=== PATIENT | male | born 1970 | race Caucasian/White ===

== ENCOUNTER 2024-10-31 18:14 | Inpatient (IN) | payer MEDICAID, SELFPAY ==
[2024-10-31 18:25] VITALS: PULSE 75; RESP 20; O2SAT 99; BMI 21.9
[2024-10-31 18:47] VITALS: BP 179/92; PULSE 85; RESP 18; TEMP 36.9; O2SAT 99
--- NOTE | 2024-10-31 18:47 | XR_ITS ---
Examination: Abdomen sonogram, Limited Date and time of exam: October 31, 20242056 hours INDICATIONS: Epigastric pain nausea vomiting beginning 4:00 AM this morning Technique: Real-time de la cruz scale transabdominal sonographic images of the upper abdomen obtained. Findings: Gallstones Gallbladder wall 0.3 cm Common bile duct 0.2 cm Pancreatic head 3.7 cm Liver 14.2 cm no liver lesions Normal hepatopedal portal venous flow Patent IVC IMPRESSION: Cholelithiasis, negative for cholecystitis
--- NOTE | 2024-10-31 18:48 | PD.EDRME ---
Rapid Medical Screening Exam RME Arrival date/time: 10/31/24 18:14 54-year-old male with a history of hypertension presents to the emergency room with a chief complaint of nausea, vomiting, 8 out of 10 abdominal pain, diarrhea that began today at 5 AM. I have greeted and performed a focused initial assessment of this patient. A comprehensive ED assessment and evaluation of the patient, analysis of all test results, and completion of the medical decision making process will be conducted by additional ED providers. Chief Complaint: Nausea/Vomiting/Diarrhea Vital signs: Vital Signs Temperature 98.5 F 10/31/24 18:47 Pulse Rate 85 10/31/24 18:47 Respiratory Rate 18 10/31/24 18:47 Blood Pressure 179/92 H 10/31/24 18:47 Pulse Oximetry (%) 99 10/31/24 18:47 Oxygen Delivery Method Room Air 10/31/24 18:47 Vital signs reviewed by provider: Yes
[2024-10-31 19:41] LABS: Basophils # (Auto) 0.1 Thou/mm3 (0.0-0.2); Basophils % (Auto) 0 % (0-2.5); Eosinophils % (Auto) 0 % (0-10); Hematocrit 36.8 % (41.0-53.0); Hemoglobin 12.9 g/dL (13.5-16.0); Immature Granulocytes % (Auto) 1 % (0-0); Immature Granulocytes Auto 0.09 Thou/mm3 (0.00-0.00); Lymphocytes % (Auto) 6 % (10-50); Mean Corpuscular HGB Conc 35.1 g/dl (31.0-37.0); Mean Corpuscular Hemoglobin 34.7 pg (25.0-35.0); Mean Corpuscular Volume 99 fL (80-100); Monocytes # (Auto) 0.8 Thou/mm3 (0.0-0.8); Monocytes % (Auto) 5 % (0-12); Neutrophils # (Auto) 14.7 Thou/mm3 (1.8-7.7); Neutrophils % (Auto) 88 % (37-80); Nucleated Red Blood Cell % 0 /100 WBC (0); Platelet Count 267 Thou/mm3 (140-440); RDW Standard Deviation 53.1 fL (35.1-43.9); Red Blood Count 3.72 Miln/mm3 (4.50-5.90); White Blood Count 16.6 Thou/mm3 (3.8-10.6)
[2024-10-31 19:58] LABS: Alanine Aminotransferase 20 U/L (10-49); Albumin, Serum 5.5 gm/dL (3.5-5.0); Albumin/Globulin Ratio 1.5 (1.2-2.2); Alkaline Phosphatase 99 U/L (46-116); Anion Gap 24 (7-16); Aspartate Amino Transferase 24 U/L (0-34); BUN/Creatinine Ratio 6 Ratio (12-20); Bilirubin,Total 0.4 mg/dL (0.3-1.2); Blood Urea Nitrogen 48 mg/dL (9-23); Calcium 11.5 mg/dL (8.3-10.6); Calcium (Corrected) 11.5 mg/dL (8.5-10.1); Carbon Dioxide 24.3 mMol/L (20.0-31.0); Chloride 87 mMol/L (98-107); Creatinine (Component) 8.4 mg/dL (0.6-1.3); Estimated Creatinine Clearance 9.1 mL/min (>60); Globulin 3.6 gm/dL (2.3-3.5); Glucose 253 mg/dL (74-106); Lipase 66 U/L (12-53); Osmolality,Calculated 291 (275-295); Potassium 4.8 mMol/L (3.4-5.1); Sodium 135 mMol/L (136-145); Total Protein 9.1 gm/dL (5.7-8.2); eGFR 7 See Note
[2024-10-31 22:28] VITALS: BP 209/100; PULSE 100; RESP 18; TEMP 36.8; O2SAT 99
[2024-11-01] VITALS (39 sets, daily range): BP systolic 121–221; BP diastolic 65–112; PULSE 78–130; RESP 16–98; TEMP 36.6–37.7; O2SAT 95–100; BMI 21.9
--- NOTE | 2024-11-01 | PC.NURSE ---
PT RECEIVED FROM [facility], PT CAME TO ER FOR N/V. PT HAS ZOFRAN AT HOME THAT IS NOT WORKING. PT ALSO HAS HIGH BP. HX OF ESRD AND DM. DR. TOBIAS AWARE OF PT CONDITION, NEW ORDER GIVEN AND CARRIED OUT.
[2024-11-01] MEDS: METOCLOPRAMIDE INJ 5 MG/ML VIAL 2 ML 10 MG IVP (00:17)
[2024-11-01] MEDS: hydrALAZINE INJ 20 MG/ML VIAL IV (00:20)
--- NOTE | 2024-11-01 00:50 | EDNOTE_ITS ---
Nausea/Vomit./Diarrhea-RME/HPI General Chief complaint: Nausea/Vomiting/Diarrhea Stated complaint: VOMITING Time Seen by Provider: 10/31/24 18:55 Arrival date/time: 10/31/24 18:14 Limitations: no limitations RME / HPI RME / HPI Narrative: 10/31/24 18:14 54-year-old male with a history of hypertension presents to the emergency room with a chief complaint of nausea, vomiting, 8 out of 10 abdominal pain, diarrhea that began today at 5 AM. I have greeted and performed a focused initial assessment of this patient. A comprehensive ED assessment and evaluation of the patient, analysis of all test results, and completion of the medical decision making process will be conducted by additional ED providers. ---- Dr. Alfonso's Main ED Evaluation: 54yo male with a history of DM, HTN, renal disease on HD (//Sun) presents to the ED for complaints of nausea and vomiting x 1 day. Patient states he's had persistent vomiting today, reporting he usually gets like this when he needs dialysis. Patient endorses associated abdominal pain when he vomits. He denies any diarrhea, fever, chills or any other associated symptoms. Pyrotechnic Assembler is Dr. Camacho. Related Data Home Medications ?Medication ?Instructions ?Recorded ?Confirmed nifedipine 60 mg tablet,extended 60 mg PO BID 01/17/23 04/18/23 release 24 hr Previous Rx's ?Medication ?Instructions ?Recorded clonidine HCl 0.1 mg tablet 0.2 mg (2 x 0.1 mg) PO TID 30 days 11/25/22 #180 tabs hydralazine 100 mg tablet 100 mg PO TIDWM 1 month #90 tabs 11/25/22 metoclopramide HCl 5 mg tablet 5 mg PO TIDWMEAL #90 ta bs 11/25/22 (Reglan) valsartan 80 mg tablet 160 mg (2 x 80 mg) PO BID 30 days 11/25/22 #120 tabs aluminum-mag hydroxide-simethicone 15 ml PO QID PRN in digestion 03/26/24 200 mg-200 mg-20 mg/5 mL oral susp #3,000 mL (Maalox Advanced) metoclopramide HCl 10 mg tablet 10 mg PO Q6H PRN nause a and 06/19/24 (Reglan) vomiting #20 tabs pantoprazole 40 mg tablet,delayed 40 mg PO QDAY #30 ta bs 03/26/24 release (Protonix) promethazine 50 mg tablet 50 mg PO TID PRN sedation #2 0 tabs 03/26/24 Allergies Allergy/AdvReac Type Severity Reaction Status Date / Time UNKNOWN HIGH BP MED Allergy Uncoded 03/26/24 11:17 Review of Systems Review of Systems Systems Reviewed: All systems reviewed, normal except as documented ED Exam General Limitations: Present no limitations General appearance: Present alert and in no apparent distress Head Head exam: Present atraumatic Eye Eye exam: Present normal appearance, PERRL and EOMI ENT ENT exam: Present normal exam, normal oropharynx and mucous membranes moist Neck Neck exam: Present normal inspection, full ROM and trachea midline Chest Chest inspection: Present normal inspection and symmetric chest wall rise Respiratory Respiratory exam: Present normal lung sounds bilaterally Cardiovascular Cardiovascular exam: Present regular rate, normal rhythm and normal heart sounds Abdominal Exam Abdominal exam: Present soft and guarding Extremities Exam Extremities exam: Present normal inspection and full ROM Back Exam Back exam: Present normal inspection and full ROM Neurological Exam Neurological exam: Present alert, oriented X3 and CN II-XII intact Psychiatric Psychiatric exam: Present normal affect and normal mood Skin Skin exam: Present warm, dry, intact and normal color Course Quality Measures none Orders Category Date Time Status COVID-19 Screening Questionnaire NOW Care 11/01/24 04:47 Completed Decision to Admit X1 Care 11/01/24 04:46 Completed Insert IV NOW Care 11/01/24 00:04 Completed US gall bladder Stat Exams 10/31/24 18:47 Completed CBC Stat Lab 10/31/24 19:08 Completed CMP [Comprehensive Metabolic Panel] Stat Lab 10/31/24 19:08 Completed Lipase Stat Lab 10/31/24 19:08 Completed Diazepam Inj [Valium Inj] Med 11/01/24 01:52 Discontinued 2.5 mg IVP X1 ONE Labetalol IV [Trandate IV] Med 11/01/24 01:52 Discontinued 10 mg IVP X1 ONE Labetalol IV [Trandate IV] Med 11/01/24 05:28 Discontinued 10 mg IVP X1 ONE Metoclopramide Inj [Reglan Inj] Med 11/01/24 00:11 Discontinued 10 mg IVP X1 ONE Metoclopramide Inj [Reglan Inj] Med 11/01/24 00:14 Discontinued 10 mg IVP X1 ONE Ondansetron Inj [Zofran Inj] Med 11/01/24 01:52 Discontinued 4 mg IV X1 ONE Ondansetron Odt [Zofran Odt] Med 10/31/24 18:46 Discontinued 4 mg PO X1 ONE Pantoprazole Inj [Protonix Inj] Med 11/01/24 01:55 Discontinued 40 mg IV X1 ONE Sodium Chloride 0.9% 250 ml [Ns] 250 ml Med 11/01/24 01:55 Discontinued IV 999 mls/hr hydrALAZINE INJ [Apresoline Inj] Med 11/01/24 00:11 Discontinued 20 mg IV X1 ONE Vital Signs Vital signs: Vital Signs Temperature 98.5 F 10/31/24 18:47 Pulse Rate 85 10/31/24 18:47 Respiratory Rate 18 10/31/24 18:47 Blood Pressure 179/92 H 10/31/24 18:47 Pulse Oximetry (%) 99 10/31/24 18:47 Oxygen Delivery Method Room Air 10/31/24 18:47 Pulse ox is 99% on room air, which is normal according to my interpretation. Nausea/Vomiting/Diarrhea MDM Narrative MDM Narrative:: Patient continues to have nausea and dry heaving despite being given Zofran, Valium, Haldol, and Reglan. Will consult an admission to the hospitalist. Patient data External records reviewed:: [facility] previous records (Per chart review, patient was seen here on 04/05/24 for ESRD.) Clinical information provided by:: patient Social determinants that could affect healthcare access:: none Patient has the following chronic illnesses:: DM, HTN, renal disease on HD How is presenting disease/condition affected by chronic disease/condition?: uneffected by Evaluation data The following diagnostics were reviewed and interpreted by me:: lab results and radiology exam(s) Lab and/or radiology exams considered but not ordered:: none Interpretation Summary: WBC count is elevated at 16.6, Creatinine is elevated at 8.4, Glucose is 253, LFTs are normal, Total Bilirubin is normal, Lipase is 66, according to my interpretation. -------- [facility] Report Signed Patient: NIDHI SRINIVASAN [facility] Record#: [id number] Birthdate: 1970 Age/Sex: 54 / M Location: [facility] Attending Dr: Ordering Physician: Garcia Abdi Date of Service: 10/31/24 Procedure(s): US gall bladder Accession Number(s): [id number] cc: Garcia Abdi; Ty Parker MD; NO PRIMARY/FAMILY,PHYSICIAN~ Examination: Abdomen sonogram, Limited Date and time of exam: October 31, 20242056 hours INDICATIONS: Epigastric pain nausea vomiting beginning 4:00 AM this morning Technique: Real-time de la cruz scale transabdominal sonographic images of the upper abdomen obtained. Findings: Gallstones Gallbladder wall 0.3 cm Common bile duct 0.2 cm Pancreatic head 3.7 cm Liver 14.2 cm no liver lesions Normal hepatopedal portal venous flow Patent IVC IMPRESSION: Cholelithiasis, negative for cholecystitis Dictated By: Ty Parker MD Signed By: <Electronically signed by Ty Parker MD in [place]> 10/31/242 Medications / Prescriptions Medications / Prescriptions considered but not ordered:: none Medication administrations:: Medication Administration History Discontinued Medications Acetaminophen (Acetaminophen 325 Mg Tablet) 650 mg PO Q6H PRN PRN Reason: Fever >101.5 Stop: 12/01/24 05:28 Acetaminophen (Acetaminophen 325 Mg Tablet) 650 mg PO Q6H PRN PRN Reason: PAIN SCALE 1-3 (mild Stop: 12/01/24 05:28 Last Admin: 11/02/24 10:57 Dose: 650 mg Documented By: ED Calcium Chloride (Calcium Chloride 10% Inj 10 Ml Syrg) 10 ml IV X1 ONE Stop: 11/02/24 08:17 Last Admin: 11/02/24 08:25 Dose: Not Given Documented By: CHRIS Non-Admin Reason: Discontinued Calcium Gluconate (Calcium Gluconate 10% Inj 1 Gm/10 Ml Vial) 1 gm IV X1 ONE Stop: 11/01/24 08:21 Last Admin: 11/01/24 13:20 Dose: 1 gm Documented By: MELANIE Clonidine (Clonidine Hcl 0.1 Mg Tablet) 0.2 mg PO TID SARAH Stop: 12/01/24 05:59 Last Admin: 11/02/24 13:26 Dose: 0.2 mg Documented By: Admin: 11/02/24 05:19 Dose: 0.2 mg Documented By: Admin: 11/01/24 21:49 Dose: 0.2 mg Documented By: Admin: 11/01/24 13:30 Dose: 0.2 mg Documented By: Admin: 11/01/24 05:57 Dose: 0.2 mg Documented By: CVL Dextrose (Dextrose 50%-Water Inj 50 Ml Syringe) 25 ml IV Q15MIN PRN PRN Reason: BG 50-70 responsive npo pt Stop: 12/01/24 05:36 Dextrose (Dextrose 50%-Water Inj 50 Ml Syringe) 50 ml IV Q15MIN PRN PRN Reason: BG <50 OR BG <70 & pt unresponsive Stop: 12/01/24 05:36 Dextrose (Dextrose 50%-Water Inj 50 Ml Syringe) 25 ml IV Q15MIN PRN PRN Reason: BG 50-70 responsive npo pt Stop: 12/02/24 08:15 Diazepam (Diazepam Inj 5 Mg/Ml Vial 2 Ml) 2.5 mg IVP X1 ONE Stop: 11/01/24 01:53 Last Admin: 11/01/24 02:14 Dose: 2.5 mg Documented By: CVL Glucagon (Glucagon Inj 1 Mg Vial) 1 mg IM Q15MIN PRN PRN Reason: BG <70, and no IV access Hydralazine HCl (Hydralazine Inj 20 Mg/Ml Vial) 20 mg IV X1 ONE Stop: 11/01/24 00:12 Last Admin: 11/01/24 00:20 Dose: 20 mg Documented By: CVL Hydralazine HCl (Hydralazine Hcl 25 Mg Tablet) 25 mg PO QID SARAH Stop: 12/01/24 06:29 Last Admin: 11/02/24 12:17 Dose: 25 mg Documented By: Admin: 11/02/24 05:06 Dose: 25 mg Documented By: Admin: 11/01/24 20:41 Dose: 25 mg Documented By: Admin: 11/01/24 17:24 Dose: Not Given Documented By: KRISTA Non-Admin Reason: NPO Admin: 11/01/24 15:34 Dose: Not Given Documented By: KRISTA Non-Admin Reason: ER order Admin: 11/01/24 06:41 Dose: Not Given Documented By: CVL Non-Admin Reason: Change of Condition Hydromorphone HCl (Hydromorphone Inj 2 Mg/Ml Vial) 0.25 mg IVP Q2H PRN PRN Reason: Pain 7-10 Stop: 11/06/24 05:28 Sodium Chloride (Ns) 250 mls @ 999 mls/hr IV .Q16M ONE Stop: 11/01/24 02:10 Last Infusion: 11/01/24 02:53 Dose: Infused Documented By: Admin: 11/01/24 02:19 Dose: 999 mls/hr Documented By: CVL Sodium Chloride (Ns) 250 mls @ 999 mls/hr IV .Q16M ONE Stop: 11/01/24 05:44 Last Infusion: 11/01/24 06:25 Dose: Infused Documented By: Admin: 11/01/24 06:08 Dose: 999 mls/hr Documented By: CVL Ceftriaxone Sodium/Dextrose (Rocephin/D5w 1gm Iv Premix) 50 mls @ 100 mls/hr IV QDAY [facility] Stop: 11/08/24 05:34 Last Admin: 11/02/24 08:18 Dose: 100 mls/hr Documented By: Infusion: 11/01/24 06:33 Dose: Infused Documented By: Admin: 11/01/24 06:14 Dose: 100 mls/hr Documented By: CVL Metronidazole (Flagyl 500 Mg Iv) 500 mg in 100 mls @ 200 mls/hr IV Q8HR [facility] Stop: 11/08/24 05:34 Last Admin: 11/02/24 13:27 Dose: 200 mls/hr Documented By: Infusion: 11/02/24 05:37 Dose: Infused Documented By: Admin: 11/02/24 05:07 Dose: 200 mls/hr Documented By: Infusion: 11/01/24 22:19 Dose: Infused Documented By: Admin: 11/01/24 21:49 Dose: 200 mls/hr Documented By: Infusion: 11/01/24 15:34 Dose: Infused Documented By: Admin: 11/01/24 13:20 Dose: 200 mls/hr Documented By: Infusion: 11/01/24 07:07 Dose: Infused Documented By: Admin: 11/01/24 06:36 Dose: 200 mls/hr Documented By: CVL Insulin Glargine (Insulin Glargine (Lantus) 5 Unit/0.05 Ml (Per 5 Units)) 10 unit SC X1 ONE Stop: 11/01/24 06:16 Last Admin: 11/01/24 06:33 Dose: Not Given Documented By: CVL Non-Admin Reason: NPO Insulin Human Lispro (Insulin Lispro (Admelog) 1 Unit/0.01 Ml Unit) 0 unit SC AC SARAH; Protocol Stop: 12/01/24 07:29 Last Admin: 11/02/24 11:26 Dose: Not Given Documented By: LS Non-Admin Reason: Not In Room Admin: 11/02/24 07:29 Dose: Not Given Documented By: LS Non-Admin Reason: Per Protocol Admin: 11/01/24 17:23 Dose: Not Given Documented By: KRISTA Non-Admin Reason: Per Protocol Admin: 11/01/24 13:16 Dose: 1 unit Documented By: MELANIE Co-signed By: CHRIS Admin: 11/01/24 07:20 Dose: Not Given Documented By: NQ Non-Admin Reason: Patient Refused Insulin Human Regular (Insulin Hum Regular 1 Unit/0.01 Ml (Per Unit)) 5 unit IV X1 ONE Stop: 11/02/24 08:17 Last Admin: 11/02/24 08:26 Dose: Not Given Documented By: LS Non-Admin Reason: Discontinued Labetalol HCl (Labetalol Inj 5 Mg/Ml Vial 20 Ml) 10 mg IVP X1 ONE Stop: 11/01/24 01:53 Last Admin: 11/01/24 02:17 Dose: 10 mg Documented By: CVL Labetalol HCl (Labetalol Inj 5 Mg/Ml Vial 20 Ml) 10 mg IVP X1 ONE Stop: 11/01/24 05:29 Last Admin: 11/01/24 06:40 Dose: Not Given Documented By: CVL Non-Admin Reason: Change of Condition Labetalol HCl (Labetalol Inj 5 Mg/Ml Vial 20 Ml) 10 mg IVP Q1H PRN PRN Reason: SBP >180mmhg Stop: 12/01/24 05:44 Metoclopramide HCl (Metoclopramide Inj 5 Mg/Ml Vial 2 Ml) 10 mg IVP X1 ONE; Protocol Stop: 11/01/24 00:12 Last Admin: 11/01/24 00:17 Dose: 10 mg Documented By: CVL Metoclopramide HCl (Metoclopramide Inj 5 Mg/Ml Vial 2 Ml) 10 mg IVP X1 ONE; Protocol Stop: 11/01/24 00:15 Last Admin: 11/01/24 00:20 Dose: Not Given Documented By: CVL Non-Admin Reason: Duplicate Medication on eMAR Nifedipine (Nifedipine 10 Mg Capsule) 10 mg PO TID [facility] Stop: 12/01/24 05:59 Nifedipine (Nifedipine 10 Mg Capsule) 20 mg PO TID [facility] Stop: 12/01/24 05:44 Last Admin: 11/01/24 05:56 Dose: 20 mg Documented By: CVL Ondansetron HCl (Ondansetron Odt 4 Mg Tabrap) 4 mg PO X1 ONE; Protocol Stop: 10/31/24 18:47 Last Admin: 10/31/24 20:10 Dose: Not Given Documented By: CB Non-Admin Reason: Patient Refused Ondansetron HCl (Ondansetron Inj 2 Mg/Ml Inj 2 Ml) 4 mg IV X1 ONE; Protocol Stop: 11/01/24 01:53 Last Admin: 11/01/24 02:17 Dose: 4 mg Documented By: CVL Ondansetron HCl (Ondansetron Inj 2 Mg/Ml Inj 2 Ml) 4 mg IV Q6H PRN; Protocol PRN Reason: NAUSEA OR VOMITING Stop: 12/01/24 05:28 Last Admin: 11/01/24 21:02 Dose: 4 mg Documented By: FF Oxycodone/Acetaminophen (Oxycodone/Apap 5/325 Tablet) 1 tab PO Q6H PRN PRN Reason: PAIN SCALE 4-6 (Moderate Stop: 11/06/24 05:28 Pantoprazole Sodium (Pantoprazole Inj 40 Mg Vial) 40 mg IV X1 ONE Stop: 11/01/24 01:56 Last Admin: 11/01/24 02:16 Dose: 40 mg Documented By: CVL Pantoprazole Sodium (Pantoprazole Inj 40 Mg Vial) 40 mg IVP QDAY [facility] Stop: 12/01/24 05:34 Last Admin: 11/02/24 08:15 Dose: 40 mg Documented By: Admin: 11/01/24 07:21 Dose: Not Given Documented By: NQ Non-Admin Reason: Contraindicated Admin: 11/01/24 06:09 Dose: 40 mg Documented By: CVL Pharmacy Consult (Pharmacy Renal Dose Adjustment 1 Ea) 1 each XX PRN PRN PRN Reason: CONSULT Stop: 12/01/24 05:33 Sodium Polystyrene Sulfonate (Sod Polystyrene Sulfon Susp 15 Gm/60 Ml Btl) 30 gm PO X1 ONE Stop: 11/02/24 08:17 Last Admin: 11/02/24 08:26 Dose: Not Given Documented By: LS Non-Admin Reason: Discontinued Valsartan (Valsartan 80 Mg Tablet) 160 mg PO QDAY SARAH Stop: 12/01/24 08:59 Last Admin: 11/01/24 13:08 Dose: Not Given Documented By: MP Non-Admin Reason: Held for Dialysis see above Consultations Consultation(s) initiated? (list below): Yes Consultation #1 (Physician, Specialty, Details): Discussed case with [the resident physician, attending Dr. Hong] from Hospitalist service regarding admission. Discussed patients ED course, exam findings, labs, and radiology results. The Hospitalist [agrees] to accept the patient for admission. Time: 04:44 Diagnosis Nausea Differential Diagnosis: other (gastroparesis, renal failure, electrolyte abnormality, pancreatitis, intractable nausea, cholelithiasis, cholecystitis) Most likely diagnosis given after review of the tests above:: see below Admission Indicated Admission indicated?: indicated Admission Request Was there a request for admission?: Yes Admission Attestation Admission request attestation: Discussed case with [] from Hospitalist service regarding admission. Discussed patients ED course, exam findings, labs, and radiology results. The Hospitalist [agrees,declines] to accept the patient for admission. Disposition Plan Disposition Plan: Admit Discharge Plan Plan Patient Disposition: Admit Acute Care w/in Hospital Problem List Clinical Impression: End stage renal disease, Type 2 diabetes mellitus, Intractable nausea, Gallstones Patient/Caregiver Discharge Instructions Other Activity Instructions:: Continue home medication continue scheduled dialysis Follow up with primary care provider within 1-2 weeks after discharge Come back to ED if symptoms worsens. Continuar con la medicaci?n en casa. Continuar con la citas del di?lisis programada Jose L valentina laurita seguimiento con [facility] Doctor de atenci?n primaria dentro de 1 a 2 semanas despu?s del kevin. Regrese al servicio de urgencias si los s?ntomas empeoran.
[2024-11-01] MEDS: DIAZEPAM INJ 5 MG/ML VIAL 2 ML 2.5 MG IVP (02:14)
[2024-11-01] MEDS: PANTOPRAZOLE INJ 40 MG VIAL IV (02:16)
[2024-11-01] MEDS: ONDANSETRON INJ 2 MG/ML INJ 2 ML 4 MG IV ×2 (02:17→21:02)
[2024-11-01] MEDS: LABETALOL INJ 5 MG/ML VIAL 20 ML 10 MG IVP (02:17)
[2024-11-01] MEDS: SODIUM CHLORIDE 0.9% 250 ML 250 ML 999 ML IV ×2 (02:19→06:08)
--- NOTE | 2024-11-01 05:29 | EKG_ITS ---
[facility] Test Date: 2024-11-01 Pat Name: NIDHI SRINIVASAN Department: Room: - Gender: Male Primary Special Educator: : 1970 Requested By: Kathi Germain Order Number: [id number] Reading MD: Kathi Germain Measurements Intervals [place] Rate: 117 P: 262 WV: 177 QRS: 4 QRSD: 90 T: 53 QT: 314 QTc: 439 Interpretive Statements SINUS TACHYCARDIA MINIMAL VOLTAGE CRITERIA FOR LVH, CONSIDER NORMAL VARIANT [MEETS CRITERIA IN ONE OF: R(aVL), S(V1), R(V5), R(V5/V6)+S(V1)] NONSPECIFIC T-WAVE ABNORMALITY ABNORMAL RHYTHM ECG Compared to ECG 03/26/2024 11:48:40 Sinus rhythm no longer present T-wave abnormality still present /store/S0/[id number].pdf
--- NOTE | 2024-11-01 05:45 | XR_ITS ---
Examination: AP chest single view TECHNIQUE: AP portable semiupright chest single view Exam date 9: November 01, 2024 0555 hours Comparison March 26, 2024 INDICATIONS: Hypertension and epigastric pain today. FINDINGS: Mild prominence left ventricle No pneumonia or pulmonary edema Minor subsegmental atelectasis right base IMPRESSION: No pneumonia or pulmonary edema
--- NOTE | 2024-11-01 05:53 | ESHP_ITS ---
Documentation for date of: 11/01/24 HPI History of Present Illness Chief complaint: 1 day history of abdominal pain associated nausea and vomiting History of present illness: HPI: A 54-year-old male patient with past medical history of ESRD does not make urine on dialysis TTS, following up with Dr. Camacho, hypertension, diabetes mellitus type 2, retinopathy, hyperlipidemia, GERD, presented to the ED due to history of 1 day of abdominal pain started at the epigastric area associated with persistent nausea, vomiting, and diarrhea. Patient reported that the nausea and vomiting are so persistent that he was not able to eat anything for 1 day. He also reported that the diarrhea is liquid and there was no upper or lower GI bleed. On further questioning patient reported that he has also persistent hiccups. He denied eating any unusual food and he has been taking his medications per instructions. Patient reported that he has episodes of chills however he denied any fever, flulike symptoms, or history of sick contact. Patient reported that he has multiple episodes of similar symptoms in which he go to the ED or to an urgent care and is treated symptomatically and then discharge. He will follow-up with Dr. Camacho for his dialysis and he has never missed any session of dialysis. At the ED patient was found to have blood pressure of 200/107, pulse rate of 103, temperature of 98.6, saturating well on room air. His CBC showed hemoglobin of 12.9, WBC of 16.6, his serum sodium 135, chloride 87, anion gap of 24 however sodium bicarb 24.3 which is normal, BUN 48, serum creatinine 8.4, glucose 253, calcium 11.5, lipase 66, AST and ALT within normal limits. Abdominal ultrasound was positive for gallbladder stone however it was negative for cholecystitis. Home medications: PMH: As above Social hx: Alcohol: Denied Tobacco: Denied Illicit drugs: Denied Allergies: No known allergies Review of Systems Review of Systems Systems Reviewed: All systems reviewed, normal except as documented Exam Vital Signs Temp Pulse Resp BP Pulse Ox O2 Del Method 98.6 F 103 H 18 202/107 H 98 Room Air 11/01/24 04:11 11/01/24 04:55 11/01/24 04:55 11/01/24 04:55 11/01/24 04:55 11/01/24 04:55 Narrative Exam GEN: AOx3, able to speak full sentences, nauseous, has multiple episodes of hiccups HEENT: NC/AC, congested conjunctiva, oral mucosa moist, neck supple CVS: RRR, S1-S2 present, no murmurs appreciated RESP: CTAB GI: soft,non distended, generalized mild tenderness, exaggerated NBS MSK: Left arm surgical fistula, able to move all 4 limbs, no lower extremity edema 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 Results: Labs 10/31/24 19:08 10/31/24 19:08 Labs: Short CBC 10/31/24 Range/Units 19:08 WBC 16.6 H (3.8-10.6) Thou/mm3 Hgb 12.9 L (13.5-16.0) g/dL Hct 36.8 L (41.0-53.0) % Plt Count 267 (140-440) Thou/mm3 BMP 10/31/24 19:08 Sodium 135 L Potassium 4.8 Chloride 87 L Carbon Dioxide 24.3 BUN 48 H Creatinine 8.4 H* Glucose 253 H Calcium 11.5 H Liver Function 10/31/24 Range/Units 19:08 Total Bilirubin 0.4 (0.3-1.2) mg/dL AST 24 (0-34) U/L ALT 20 (10-49) U/L Alkaline Phosphatase 99 (46-116) U/L Albumin 5.5 H (3.5-5.0) gm/dL Quality Measures Quality Measures none Medications Home Medications and Allergies Home Medications ?Medication ?Instructions ?Recorded ?Confirmed ?Type nifedipine 60 mg tablet,extended 60 mg PO BID 01/17/23 04/18/23 History release 24 hr Allergies Allergy/AdvReac Type Severity Reaction Status Date / Time UNKNOWN HIGH BP MED Allergy Uncoded 03/26/24 11:17 Visit Medications Acetaminophen (Acetaminophen 325 Mg Tablet) 650 mg PO Q6H PRN PRN Reason: Fever >101.5 Stop: 12/01/24 05:28 Acetaminophen (Acetaminophen 325 Mg Tablet) 650 mg PO Q6H PRN PRN Reason: PAIN SCALE 1-3 (mild Stop: 12/01/24 05:28 Clonidine (Clonidine Hcl 0.1 Mg Tablet) 0.2 mg PO TID SARAH Stop: 12/01/24 05:59 Dextrose (Dextrose 50%-Water Inj 50 Ml Syringe) 25 ml IV Q15MIN PRN PRN Reason: BG 50-70 responsive npo pt Stop: 12/01/24 05:36 Dextrose (Dextrose 50%-Water Inj 50 Ml Syringe) 50 ml IV Q15MIN PRN PRN Reason: BG <50 OR BG <70 & pt unresponsive Stop: 12/01/24 05:36 Glucagon (Glucagon Inj 1 Mg Vial) 1 mg IM Q15MIN PRN PRN Reason: BG <70, and no IV access Hydromorphone HCl (Hydromorphone Inj 2 Mg/Ml Vial) 0.25 mg IVP Q2H PRN PRN Reason: Pain 7-10 Stop: 11/06/24 05:28 Ceftriaxone Sodium/Dextrose (Rocephin/D5w 1gm Iv Premix) 50 mls @ 100 mls/hr IV QDAY [facility] Stop: 11/08/24 05:34 Metronidazole (Flagyl 500 Mg Iv) 500 mg in 100 mls @ 200 mls/hr IV Q8HR [facility] Stop: 11/08/24 05:34 Insulin Human Lispro (Insulin Lispro (Admelog) 1 Unit/0.01 Ml Unit) 0 unit SC AC [facility]; Protocol Stop: 12/01/24 07:29 Labetalol HCl (Labetalol Inj 5 Mg/Ml Vial 20 Ml) 10 mg IVP Q1H PRN PRN Reason: SBP >180mmhg Stop: 12/01/24 05:44 Nifedipine (Nifedipine 10 Mg Capsule) 20 mg PO TID [facility] Stop: 12/01/24 05:44 Ondansetron HCl (Ondansetron Inj 2 Mg/Ml Inj 2 Ml) 4 mg IV Q6H PRN; Protocol PRN Reason: NAUSEA OR VOMITING Stop: 12/01/24 05:28 Oxycodone/Acetaminophen (Oxycodone/Apap 5/325 Tablet) 1 tab PO Q6H PRN PRN Reason: PAIN SCALE 4-6 (Moderate Stop: 11/06/24 05:28 Pantoprazole Sodium (Pantoprazole Inj 40 Mg Vial) 40 mg IVP QDAY [facility] Stop: 12/01/24 05:34 Pharmacy Consult (Pharmacy Renal Dose Adjustment 1 Ea) 1 each XX PRN PRN PRN Reason: CONSULT Stop: 12/01/24 05:33 Discontinued Medications Diazepam (Diazepam Inj 5 Mg/Ml Vial 2 Ml) 2.5 mg IVP X1 ONE Stop: 11/01/24 01:53 Last Admin: 11/01/24 02:14 Dose: 2.5 mg Hydralazine HCl (Hydralazine Inj 20 Mg/Ml Vial) 20 mg IV X1 ONE Stop: 11/01/24 00:12 Last Admin: 11/01/24 00:20 Dose: 20 mg Sodium Chloride (Ns) 250 mls @ 999 mls/hr IV .Q16M ONE Stop: 11/01/24 02:10 Last Infusion: 11/01/24 02:53 Dose: Infused Sodium Chloride (Ns) 250 mls @ 999 mls/hr IV .Q16M ONE Stop: 11/01/24 05:44 Labetalol HCl (Labetalol Inj 5 Mg/Ml Vial 20 Ml) 10 mg IVP X1 ONE Stop: 11/01/24 01:53 Last Admin: 11/01/24 02:17 Dose: 10 mg Labetalol HCl (Labetalol Inj 5 Mg/Ml Vial 20 Ml) 10 mg IVP X1 ONE Stop: 11/01/24 05:29 Metoclopramide HCl (Metoclopramide Inj 5 Mg/Ml Vial 2 Ml) 10 mg IVP X1 ONE; Protocol Stop: 11/01/24 00:12 Last Admin: 11/01/24 00:17 Dose: 10 mg Metoclopramide HCl (Metoclopramide Inj 5 Mg/Ml Vial 2 Ml) 10 mg IVP X1 ONE; Protocol Stop: 11/01/24 00:15 Last Admin: 11/01/24 00:20 Dose: Not Given Nifedipine (Nifedipine 10 Mg Capsule) 10 mg PO TID SARAH Stop: 12/01/24 05:59 Ondansetron HCl (Ondansetron Odt 4 Mg Tabrap) 4 mg PO X1 ONE; Protocol Stop: 10/31/24 18:47 Last Admin: 10/31/24 20:10 Dose: Not Given Ondansetron HCl (Ondansetron Inj 2 Mg/Ml Inj 2 Ml) 4 mg IV X1 ONE; Protocol Stop: 11/01/24 01:53 Last Admin: 11/01/24 02:17 Dose: 4 mg Pantoprazole Sodium (Pantoprazole Inj 40 Mg Vial) 40 mg IV X1 ONE Stop: 11/01/24 01:56 Last Admin: 11/01/24 02:16 Dose: 40 mg Assessment & Plan Plan Summary: A 54-year-old male patient with past medical history of ESRD does not make urine on dialysis TTS, following up with Dr. Camacho, hypertension, diabetes mellitus type 2, retinopathy, hyperlipidemia, GERD, presented to the ED due to history of 1 day of abdominal pain started at the epigastric area associated with persistent nausea, vomiting, and diarrhea. Patient will be admitted for management of intractable nausea and vomiting and hypertension urgency. Assessment plan #Intractable nausea and vomiting and diarrhea most likely multifactorial #Epigastric abdominal pain #Gallbladder stones #HX of GERD DDx most likely multifactorial secondary to gallbladder stone versus uremic gastritis versus C. difficile versus infectious gastroenteritis versus peptic ulcer secondary to hypercalcemia blood pressure of 200/107, pulse rate of 103, temperature of 98.6, saturating well on room air. His CBC showed hemoglobin of 12.9, WBC of 16.6, his serum sodium 135, chloride 87, anion gap of 24 however sodium bicarb 24.3 which is normal, BUN 48, serum creatinine 8.4, glucose 253, calcium 11.5, lipase 66, AST and ALT within normal limits. Abdominal ultrasound was positive for gallbladder stone however it was negative for cholecystitis. Plan ? Admit patient to med/tele ? Give the patient 1 bolus of 250 mL NS ? Continue the patient on Zofran, ? Start the patient on ceftriaxone 1 g daily and Flagyl 500 mg 3 times daily dose to be adjusted by pharmacy ? Consider general surgery consultation for gallstone removal as his symptoms are recurrent ? Continue the patient on pantoprazole 40 mg IV daily ? Consult nephrology for possible dialysis tomorrow as per his schedule ? Sent for stool studies WBCs, stool culture, parasite and ova, C. difficile #Hypertension Urgency VS emergency Patient has Hx of resistant HTN plan - EKG was ordered follow up on the results - Trops ordered follow up on the results - Start the patient on Nifedipin 20mg TID - [id number] IV Q1h PRN if SBP more than 180 - Resume Home medication Clonidin 0.2mg TID - Consider resuming Other home meds after Med rec is done # Hx of ESRD TTS # Hypercalcemia plan - Consult Dr Camacho ordered, follow on the recs - Strict in and out - Pharmacy to dose meds # Hx DM # Hx of Diabetic rertinopathy plan - A1c - ISS - Hypoglycemia protocol # Hx of HLD plan - Hold home meds at this time Hospital Maintenance: FEN:Renal diet DVT ppx:SCD GI ppx:Protonix IV lines:PIV Eid:None Code status:F/C Dispo:Med/tele - Patient's plan and care discussed with my attending, Dr. Hal Germain MD Internal Medicine PGY-2 Attending Provider Attestation/Addendum I have discussed and was present for the essential components of the history, physical examination, diagnosis, and treatment plan with the resident. I agree with the patient's care as documented by the resident and amended herein by me. Anthony Hong DO. Although this document has been carefully reviewed, there may still be some phonetic and other typographical errors. These errors are purely grammatical due to imperfections in the software program and should not be construed in any way to compromise the substance of the patient's medical care during this visit.
[2024-11-01] MEDS: NIFEdipine 10 MG CAPSULE 20 MG PO (05:56)
[2024-11-01] MEDS: cloNIDine HCL 0.1 MG TABLET 0.2 MG PO ×3 (05:57→21:49)
[2024-11-01] MEDS: PANTOPRAZOLE INJ 40 MG VIAL IVP (06:09)
[2024-11-01] MEDS: cefTRIAXone/D5w 1gm IV premix 50 ML IV (06:14)
[2024-11-01 06:35] LABS: Basophils % (Auto) 0 % (0-2.5); Eosinophils % (Auto) 0 % (0-10); Hematocrit 33.2 % (41.0-53.0); Hemoglobin 11.8 g/dL (13.5-16.0); Immature Granulocytes % (Auto) 1 % (0-0); Immature Granulocytes Auto 0.09 Thou/mm3 (0.00-0.00); Lymphocytes % (Auto) 7 % (10-50); Mean Corpuscular HGB Conc 35.5 g/dl (31.0-37.0); Mean Corpuscular Hemoglobin 35.2 pg (25.0-35.0); Mean Corpuscular Volume 99 fL (80-100); Monocytes # (Auto) 1.2 Thou/mm3 (0.0-0.8); Monocytes % (Auto) 8 % (0-12); Neutrophils # (Auto) 12.3 Thou/mm3 (1.8-7.7); Neutrophils % (Auto) 84 % (37-80); Nucleated Red Blood Cell % 0 /100 WBC (0); Platelet Count 230 Thou/mm3 (140-440); RDW Standard Deviation 53.7 fL (35.1-43.9); Red Blood Count 3.35 Miln/mm3 (4.50-5.90); White Blood Count 14.6 Thou/mm3 (3.8-10.6)
[2024-11-01] MEDS: metroNIDAZOLE/NS 500 MG IVPB 500 MG/100 ML BAG 200 MG IV ×3 (06:36→21:49)
[2024-11-01 07:05] LABS: Alanine Aminotransferase 17 U/L (10-49); Albumin, Serum 5.5 gm/dL (3.5-5.0); Albumin/Globulin Ratio 1.7 (1.2-2.2); Alkaline Phosphatase 93 U/L (46-116); Anion Gap 18 (7-16); Aspartate Amino Transferase 18 U/L (0-34); BUN/Creatinine Ratio 7 Ratio (12-20); Bilirubin,Total 0.3 mg/dL (0.3-1.2); Blood Urea Nitrogen 63 mg/dL (9-23); Calcium 10.5 mg/dL (8.3-10.6); Calcium (Corrected) 10.5 mg/dL (8.5-10.1); Carbon Dioxide 27.1 mMol/L (20.0-31.0); Chloride 90 mMol/L (98-107); Creatinine (Component) 9.6 mg/dL (0.6-1.3); Globulin 3.2 gm/dL (2.3-3.5); Glucose 154 mg/dL (74-106); Glucose Estimated Average 140 mg/dL (80-131); Hemoglobin A1C 6.5 % Hgb (4.8-6.0); Magnesium 2.8 mg/dL (1.6-2.6); Osmolality,Calculated 291 (275-295); Phosphorous 5.5 mg/dL (2.4-5.1); Sodium 135 mMol/L (136-145); Total Protein 8.7 gm/dL (5.7-8.2); Troponin I 0.041 ng/mL (0.0-0.045); eGFR 6 See Note
--- NOTE | 2024-11-01 08:17 | PD.RESPRO ---
Documentation for date of: 11/01/24 Subjective Subjective Interval history: No acute overnight events. Has persistent abdominal pain although improved little bit. No nausea or vomiting at this time. Denies fever, chills, headaches, chest pain, sob, cough, other GI or urinary symptoms. 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 Objective Labs 11/02/24 04:55 11/02/24 04:55 Labs: Laboratory Results - last 24 hr 10/31/24 11/01/24 19:08 06:12 WBC 16.6 H 14.6 H RBC 3.72 L 3.35 L Hgb 12.9 L 11.8 L Hct 36.8 L 33.2 L MCV 99 99 MCH 34.7 35.2 H MCHC 35.1 35.5 RDW Std Deviation 53.1 H 53.7 H Plt Count 267 230 D Neut % (Auto) 88 H 84 H Lymph % (Auto) 6 L 7 L [place] % (Auto) 5 8 Eos % (Auto) 0 0 Baso % (Auto) 0 0 Neut # (Auto) 14.7 H 12.3 H Lymph # (Auto) 1.0 1.0 [place] # (Auto) 0.8 1.2 H Eos # (Auto) 0.0 0.0 Baso # (Auto) 0.1 0.0 Immature Gran # (Auto) 0.09 H 0.09 H Absolute Nucleated RBC 0.00 0.00 Immature Gran % 1 H 1 H Nucleated RBC % 0 0 Sodium 135 L 135 L Potassium 4.8 6.0 H D Chloride 87 L 90 L Carbon Dioxide 24.3 27.1 Anion Gap 24 H 18 H BUN 48 H 63 H Creatinine 8.4 H* 9.6 H* D Estim Creat Clear Calc 9.1 L 8.0 L eGFR 7 L* 6 L* BUN/Creatinine Ratio 6 L 7 L Glucose [address] Glu mg/dL 140 H Hemoglobin A1c 6.5 H Calculated Osmolality 291 291 Calcium 11.5 H 10.5 Corrected Calcium 11.5 H 10.5 H Phosphorus 5.5 H Magnesium 2.8 H Total Bilirubin 0.4 0.3 AST 24 18 ALT 20 17 Alkaline Phosphatase 99 93 Troponin I 0.041 Total Protein 9.1 H 8.7 H Albumin 5.5 H 5.5 H Globulin 3.6 H 3.2 Albumin/Globulin Ratio 1.5 1.7 Lipase 66 H Quality Measures Quality Measures none Assessment & Plan Assessment Current Active Medications: Generic Name Dose Route Start Last Admin Trade Name Freq PRN Reason Stop Dose Admin Acetaminophen 650 mg 11/01/24 05:29 Acetaminophen 325 Mg Tablet PO 12/01/24 05:28 Q6H PRN Fever >101.5 Acetaminophen 650 mg 11/01/24 05:29 Acetaminophen 325 Mg Tablet PO 12/01/24 05:28 Q6H PRN PAIN SCALE 1-3 (mild Clonidine 0.2 mg 11/01/24 06:00 11/01/24 05:57 Clonidine Hcl 0.1 Mg Tablet PO 12/01/24 05:59 0.2 mg TID SARAH Administration Dextrose 25 ml 11/01/24 05:37 Dextrose 50%-Water Inj 50 Ml Syringe IV 12/01/24 05:36 Q15MIN PRN BG 50-70 responsive npo pt Dextrose 50 ml 11/01/24 05:37 Dextrose 50%-Water Inj 50 Ml Syringe IV 12/01/24 05:36 Q15MIN PRN BG <50 OR BG <70 & pt unresponsive Glucagon 1 mg 11/01/24 05:37 Glucagon Inj 1 Mg Vial IM Q15MIN PRN BG <70, and no IV access Hydralazine HCl 25 mg 11/01/24 06:30 11/01/24 06:41 Hydralazine Hcl 25 Mg Tablet PO 12/01/24 06:29 Not Given QID SARAH Hydromorphone HCl 0.25 mg 11/01/24 05:29 Hydromorphone Inj 2 Mg/Ml Vial IVP 11/06/24 05:28 Q2H PRN Pain 7-10 Ceftriaxone Sodium/Dextrose 50 mls @ 100 mls/hr 11/01/24 05:35 11/01/24 06:33 Rocephin/D5w 1gm Iv Premix IV 11/08/24 05:34 Infused QDAY [facility] Infusion Metronidazole 500 mg in 100 mls @ 200 mls/hr 11/01/24 05:35 11/01/24 07:07 Flagyl 500 Mg Iv IV 11/08/24 05:34 Infused Q8HR SARAH Infusion Insulin Human Lispro 0 unit 11/01/24 07:30 11/01/24 07:20 Insulin Lispro (Admelog) 1 Unit/0.01 Ml Unit SC 12/01/24 07:29 Not Given AC SARAH Protocol Labetalol HCl 10 mg 11/01/24 05:37 Labetalol Inj 5 Mg/Ml Vial 20 Ml IVP 12/01/24 05:44 Q1H PRN SBP >180mmhg Nifedipine 20 mg 11/01/24 05:45 11/01/24 05:56 Nifedipine 10 Mg Capsule PO 12/01/24 05:44 20 mg TID SARAH Administration Ondansetron HCl 4 mg 11/01/24 05:29 Ondansetron Inj 2 Mg/Ml Inj 2 Ml IV 12/01/24 05:28 Q6H PRN NAUSEA OR VOMITING Protocol Oxycodone/Acetaminophen 1 tab 11/01/24 05:29 Oxycodone/Apap 5/325 Tablet PO 11/06/24 05:28 Q6H PRN PAIN SCALE 4-6 (Moderate Pantoprazole Sodium 40 mg 11/01/24 05:35 11/01/24 07:21 Pantoprazole Inj 40 Mg Vial IVP 12/01/24 05:34 Not Given QDAY [facility] Pharmacy Consult 1 each 11/01/24 05:34 Pharmacy Renal Dose Adjustment 1 Ea XX 12/01/24 05:33 PRN PRN CONSULT Valsartan 160 mg 11/01/24 09:00 Valsartan 80 Mg Tablet PO 12/01/24 08:59 QDAY SARAH Plan In summary: 61-year-old male PMHx of ESRD on HD TTS, HTN, HLD, T2DM, retinopathy, and GERD admitted for hypertensive urgency, sepsis and acute abdominal pain with N/V/D. Appreciate recommendations from GI. Sepsis with 3/4 SIRS Acute gastritis Presenting with intractable abdominal pain associated with N/V/D x 4 days. Reports extensive episodes of diarrhea and vomiting without signs of GI bleed. Associated with chills and sweats but no fevers. History of recurrent gastritis since 2 years ago with no definitive diagnosis ever made. He is anuric and denies s/s of urinary tract infection. Ultrasound shows cholelithiasis but no cholecystitis. Abdominal CT from November/2023 showed multiple nonobstructive left renal calculi but no other abnormalities. Has tachycardia, tachypnea and leukocytosis on admission. Symptoms improving. Currently afebrile. ? Pain control ? Continue ONDANSETRON ? Continue CEFTRIAXONE (11/01 to present) ? Continue FLAGYL (11/01 to present) ? Pending stool studies and cultures, WBC, parasite, ova and C. difficile. ? Pending calprotectin ? Pending GI recommendations NSTEMI type II Hypertensive urgencies (resolved) HTN HLD Admission BP 200/107, HR 103. Likely volume overload as patient missed hemodialysis. Blood pressure improved after hemodialysis and with medications. Anticipate improvement with hemodialysis. Admission troponin negative but was 0.053 on repeat, EKG showed sinus rhythm without acute ST changes. Likely demand ischemia. ? Trending troponin ? Consider restarting ANTIHYPERTENSIVE as indicated ? Consider restarting statin therapy. Hyperkalemia ESRD HD TTS Potassium 6.0 on admission. Will give CALCIUM GLUCONATE. Dr. Camacho was consulted. Will continue hemodialysis inpatient. ? Hemodialysis TTS Chronic normocytic anemia In settings of end-stage renal disease, around baseline. No signs of active bleed. ? Transfuse if Hgb less than 7 ? Daily CBC T2DM, controlled A1c 6.5. GLUCOSE within normal limit. ? Continue INSULIN sliding scale ? Accu-Cheks Health maintenance Diet: CHO consistent, renal GI prophylaxis: PROTONIX DVT prophylaxis: SCD Antibiotics: FLAGYL, CEFTRIAXONE CODE STATUS: Full code Disposition: Pending GI workup Patient case was discussed with attending, Mabel Pal MD and senior residents Dr. Diana and Dr. Paige. Yamileth Walter, DO PGYI Senior Resident Attestation: The patient is a 61-year-old male with significant past medical history on ESRD on hemodialysis TTS, hypertension, HLD, type 2 diabetes mellitus, retinopathy and GERD presented with abdominal pain, nausea and vomiting is currently being managed for acute gastritis. This morning, he reported he is doing a little bit better. He denied any nausea or vomiting, fever or chills, chest pain or SOB. Vitals were fairly stable, saturating 99% on room air. White count is 14.6, potassium 6.0, and renal panel consistent with ESRD. Troponin finally down trended to 0.053. We will continue the patient on ceftriaxone and Flagyl, and as we were suspecting possible IBS versus IBD ordered calprotectin stool and go to GI consultation, ordered stool WBC, culture, parasite and ova along with C. difficile which are pending. The patient underwent hemodialysis session this morning. We will continue with consistent carb diet. Pending GI recommendations. I discussed with and supervised the intelligence intern physician involved in the care of this patient. I personally saw and examined the patient and discussed the assessment and plan with the entire medicine team, including my attending. I agree with the assessment and plan as documented above. Adolph Paige MD PGY2 Internal Medicine Attending Provider Attestation/Addendum I attest that I was physically present for the evaluation, physical examination, lab and imaging review of the patient with the residents. I discussed the case with the residents and agree with the findings and plans of care as documented above. Mabel Pal MD
--- NOTE | 2024-11-01 09:59 | ESCONSULT_ITS ---
History of Present Illness Data of Consult Consult date: 11/01/24 Requesting Physician: David Hong DO Primary Care Provider: Physician No Primary/Family Consult Narrative Reason for consult: ESRD, Hyperkalemia History of present illness: Mr. Akins is a Kiswahili-speaking 53-year-old male past medical history of ESRD on dialysis 3 times per week (Sunday//Sunday), uncontrolled hypertension, vfr-dwwrclv-zemuqtuke diabetes mellitus type 2, GERD, dyslipidemia, legally blind from diabetes, fluid overload presented to the emergency department with a chief complaint of abdominal pain, nausea, liquidy stool associated with shortness of breath for the last 1 to 2 days. Patient denies any chest pain, fever or chills. Today his symptoms became worse and he decided to come to the ED. Denies headache, dizziness, chest pain, palpitations. Patient missed his dialysis session. Blood pressures at dialysis unit are always elevated. Apparently his home medications should be clonidine, hydralazine, Reglan, metoclopramide, valsartan, phosphorus binder, nifedipine (not sure if he is taking them or not). In the emergency department WBC 14.6, hemoglobin 11.8, platelets 230. Sodium 135, potassium 6, BUN 63, creatinine 9.6, blood sugar 154, A1c 6.5, calcium 10.5, phosphorus 5.5, magnesium 2.8, LFTs normal, troponin 0.04, CRP 1.5, albumin 5.5 chest x-ray showed no pneumonia or pulmonary edema gallbladder ultrasound showed cholelithiasis without cholecystitis. Patient admitted to medical floor with a diagnosis of possible gastroenteritis and was started on antibiotics. Renal consultation requested for need for dialysis. Patient currently seen on dialysis. cc:: cc: David Hong DO Review of Systems Review of Systems Narrative Review of Systems: CONSTITUTIONAL: Patient denies any fever, chills. Complaining of fatigue HEENT: Patient legally blind CARDIOVASCULAR: Patient denies any chest pain. Denies any shortness of breath, swelling in the lower extremities. PULMONARY: Patient complaining of shortness of breath GASTROINTESTINAL: Patient c/o abdominal discomfort, nausea., Diarrhea denies any constipation. GENITOURINARY: Patient denies any urinary symptoms of burning or frequency or hematuria, denies any form in the urine. SKIN: Dialysis access MUSCULOSKELETAL: c/o joint pains. NEUROLOGICAL: Denies any neurological problems of strokes, seizures or confusion. Denies any memory problems. Past Medical History Past Medical History NEUROLOGIC: Negative Neurological Disorders, Cerebrovascular Accident or Seizures CARDIAC: Positive Cardiac Disorders and Hypertension; Negative Myocardial Infarction, Hypercholesterolemia or Congestive Heart Failure RESPIRATORY: Positive Asthma and Pneumonia; Negative Chronic Obstructive Pulmonary Disease (COPD) GASTROINTESTINAL: Negative Gastrointestinal Disorders GENITOURINARY: Positive Renal Disease and Dialysis MUSCULOSKELETAL: Negative Musculoskeletal Disorders ENT: Positive Cataracts and Blind ENDOCRINE: Positive Endocrine Disorders and Diabetes Mellitus Type 2; Negative Diabetes Mellitus Type 1 HEMATOLOGIC: Positive Blood Disorders and Anemia; Negative Sickle Cell Disease OTHER HISTORY: Positive Hospitalization and Chicken Pox; Negative Autoimmune Disease, Shingles, Blood Transfusions, Blood Transfusion Reaction, Anesthesia Reactions, MRSA or Cancer Family History FAMILY HISTORY: Positive Family Cardiac Disorders; Negative Family Psychiatric Problems, Family Respiratory Disorders, Family Gastrointestinal Problems, Family Cancer, Family Surgery or Family Anesthesia Reaction Surgical History SURGICAL: Positive Eye Surgery OTHER SURGICAL HX: End-stage renal disease on hemodialysis Essential hypertension Social History SMOKING STATUS: Former smoker SUBSTANCE USE: does not use Meds Home Medications and Allergies Home Medications ?Medication ?Instructions ?Recorded ?Confirmed ?Type nifedipine 60 mg tablet,extended 60 mg PO BID 01/17/23 04/18/23 History release 24 hr Allergies Allergy/AdvReac Type Severity Reaction Status Date / Time UNKNOWN HIGH BP MED Allergy Uncoded 03/26/24 11:17 Exam Vital Signs Temp Pulse Resp BP Pulse Ox O2 Del Method 37.1 C 105 H 18 133/84 H 97 Room Air 11/01/24 08:25 11/01/24 09:49 11/01/24 08:25 11/01/24 09:49 11/01/24 08:25 11/01/24 08:08 Narrative Exam GENERAL APPEARANCE: Patient currently seen in dialysis Legally blind NECK: Neck supple, no JVD or bruit CARDIOVASCULAR: Heart regular, no murmurs LUNGS/CHEST: Chest clear to auscultation. No rales, rhonchi, wheezing ABDOMEN: Soft, nontender, nondistended. No masses. Normal bowel sounds. EXTREMITIES: No edema, clubbing or cyanosis. SKIN: Skin exam normal without any rashes. Fistula+ MUSCULOSKELETAL: Musculoskeletal exam normal PSYCHIATRIC: Normal mood, affect LYMPHATICS: No lymphadenopathy noted NEUROLOGICAL : No neurological deficits Results Labs 11/02/24 04:55 11/02/24 04:55 Labs: Short CBC 10/31/24 11/01/24 Range/Units 19:08 06:12 WBC 16.6 H 14.6 H (3.8-10.6) Thou/mm3 Hgb 12.9 L 11.8 L (13.5-16.0) g/dL Hct 36.8 L 33.2 L (41.0-53.0) % Plt Count 267 230 D (140-440) Thou/mm3 BMP 10/31/24 11/01/24 19:08 06:12 Sodium 135 L 135 L Potassium 4.8 6.0 H D Chloride 87 L 90 L Carbon Dioxide 24.3 27.1 BUN 48 H 63 H Creatinine 8.4 H* 9.6 H* D Glucose 253 H 154 H D Calcium 11.5 H 10.5 Cardiac Enzymes 11/01/24 Range/Units 06:12 Troponin I 0.041 (0.0-0.045) ng/mL Liver Function 10/31/24 11/01/24 Range/Units 19:08 06:12 Total Bilirubin 0.4 0.3 (0.3-1.2) mg/dL AST 24 18 (0-34) U/L ALT 20 17 (10-49) U/L Alkaline Phosphatase 99 93 (46-116) U/L Albumin 5.5 H 5.5 H (3.5-5.0) gm/dL Assessment & Plan Additional Assessment & Plan Additional Plan: Mr. Akins is a Kiswahili-speaking 54-year-old male past medical history of ESRD on dialysis 3 times per week (Sunday//Sunday), hypertension, [id number]-kuizasnwc diabetes mellitus type 2, GERD who came to the emergency department with a chief complaint of shortness of breath, abdominal pain, nausea and vomiting and found to have uncontrolled HTN. #ESRD on HD on Sunday//Sunday ? Monitor strict ins and outs ? Avoid nephrotoxic drugs ? Renally dose medications ? continue Nephrovite Patient currently seen on dialysis. Tolerating dialysis without any problems. Hemodialysis for 3.5 hours, 2K, ultrafiltration 3-3.5 L, Epogen 6000, no heparin ordered. Plan of care discussed with the dialysis nurse. Please see dialysis flowsheet for further details. Patient may need extra session tomorrow #Hypertension-poorly controlled On multiple home medications #GERD #Type 2 diabetes mellitus #Hyperlipidemia #Abdominal pain, nausea, vomiting - ?? Uremic gastritis vs phosphorus binder related vs sensipar at dialysis versus gastroenteritis. Hopefully will improve with dialysis. Thank you Dr. De Oliveira for allowing me to participate in the care of Mr. Thomas
--- NOTE | 2024-11-01 12:40 | PC.NURSE ---
Dialysis completed for 3 hrs, tolerated well. Pt no complaints. Respiration even and unlabored. Sating at 97% RA. Able to removed 2100 ml of fluid net. Post tx BP 145/87, HR 123, Temp 97.8. Pressure dresiing on left upper arm AV fistula c/d/i. No bleeding noted. Pres. dressing to be removed around 1400. Report given to Desirae GONZÁLES
[2024-11-01] MEDS: INSULIN LISPRO (AdmeLOG) 1 UNIT/0.01 ML UNIT SC (13:16)
[2024-11-01] MEDS: CALCIUM GLUCONATE 10% INJ 1 GM/10 ML VIAL IV (13:20)
[2024-11-01 13:37] LABS: Troponin I 0.053 ng/mL (0.0-0.045)
--- NOTE | 2024-11-01 17:18 | PD.IMCONS ---
HPI Data of Consult Requesting Physician: David Hong DO Primary Care Provider: Physician No Primary/Family Consult Narrative Reason for consult: Nausea vomiting diarrhea History of present illness: 54 years old male admitted from the emergency room with nausea vomiting diarrhea which started all of a sudden No blood in the stool Liver ultrasound shows cholelithiasis Patient has end-stage renal disease on hemodialysis cc:: cc: David Hong DO Past Medical History Surgical History OTHER SURGICAL HX: End-stage renal disease on hemodialysis Essential hypertension Meds Home Medications and Allergies Home Medications ?Medication ?Instructions ?Recorded ?Confirmed ?Type nifedipine 60 mg tablet,extended 60 mg PO BID 01/17/23 04/18/23 History release 24 hr Allergies Allergy/AdvReac Type Severity Reaction Status Date / Time UNKNOWN HIGH BP MED Allergy Uncoded 03/26/24 11:17 Exam Vital Signs Temp Pulse Resp BP Pulse Ox O2 Del Method 98.6 F 78 26 H 159/84 H 99 Room Air 11/01/24 13:06 11/01/24 15:37 11/01/24 13:06 11/01/24 13:30 11/01/24 13:06 11/01/24 08:08 Constitutional Comments: Chronically ill-appearing Routine Respiratory Exam Comments: Normal to auscultation Routine Abdominal Exam Comments: Soft nontender Results Labs 11/01/24 06:12 11/01/24 06:12 Labs: Short CBC 10/31/24 11/01/24 Range/Units 19:08 06:12 WBC 16.6 H 14.6 H (3.8-10.6) Thou/mm3 Hgb 12.9 L 11.8 L (13.5-16.0) g/dL Hct 36.8 L 33.2 L (41.0-53.0) % Plt Count 267 230 D (140-440) Thou/mm3 BMP 10/31/24 11/01/24 19:08 06:12 Sodium 135 L 135 L Potassium 4.8 6.0 H D Chloride 87 L 90 L Carbon Dioxide 24.3 27.1 BUN 48 H 63 H Creatinine 8.4 H* 9.6 H* D Glucose 253 H 154 H D Calcium 11.5 H 10.5 Cardiac Enzymes 11/01/24 11/01/24 Range/Units 06:12 12:43 Troponin I 0.041 0.053 H* (0.0-0.045) ng/mL Liver Function 10/31/24 11/01/24 Range/Units 19:08 06:12 Total Bilirubin 0.4 0.3 (0.3-1.2) mg/dL AST 24 18 (0-34) U/L ALT 20 17 (10-49) U/L Alkaline Phosphatase 99 93 (46-116) U/L Albumin 5.5 H 5.5 H (3.5-5.0) gm/dL Assessment and Plan Additional Assessment & Plan Additional Plan: # Nausea vomiting could be related to gastroparesis in the setting of chronic renal disease however patient gets complicated with the onset of diarrhea and all the symptoms occurred at the same time could be a case of infectious enterocolitis or viral gastroenteritis unlikely inflammatory bowel disease unlikely symptomatic cholelithiasis Plan Complete stool panel Even if negative possible endoscopy prior to discharge # Cholelithiasis asymptomatic # ESRD on hemodialysis Thank you very much for the opportunity to participate in the care of this patient
[2024-11-01 18:08] LABS: C-Reactive Protein 1.5 mg/dL (0.0-0.9)
[2024-11-01 19:14] LABS: Sed Rate (ESR) 19 mm/hr (0-20)
[2024-11-01 19:29] LABS: Potassium 4.8 mMol/L (3.4-5.1)
[2024-11-01 19:30] LABS: Troponin I 0.052 ng/mL (0.0-0.045)
[2024-11-01] MEDS: hydrALAZINE HCL 25 MG TABLET PO (20:41)
[2024-11-02] VITALS (21 sets, daily range): BP systolic 110–145; BP diastolic 75–100; PULSE 71–88; RESP 14–18; TEMP 36.1–37; O2SAT 93–99
[2024-11-02 01:07] LABS: Troponin I 0.053 ng/mL (0.0-0.045)
[2024-11-02] MEDS: hydrALAZINE HCL 25 MG TABLET PO ×2 (05:06→12:17)
[2024-11-02] MEDS: metroNIDAZOLE/NS 500 MG IVPB 500 MG/100 ML BAG 200 MG IV ×2 (05:07→13:27)
[2024-11-02] MEDS: cloNIDine HCL 0.1 MG TABLET 0.2 MG PO ×2 (05:19→13:26)
[2024-11-02 06:43] LABS: Basophils # (Auto) 0.1 Thou/mm3 (0.0-0.2); Basophils % (Auto) 1 % (0-2.5); Eosinophils # (Auto) 0.2 Thou/mm3 (0.0-0.5); Eosinophils % (Auto) 2 % (0-10); Hematocrit 33.6 % (41.0-53.0); Hemoglobin 11.3 g/dL (13.5-16.0); Immature Granulocytes % (Auto) 1 % (0-0); Immature Granulocytes Auto 0.05 Thou/mm3 (0.00-0.00); Lymphocytes # (Auto) 1.9 Thou/mm3 (1.0-4.8); Lymphocytes % (Auto) 20 % (10-50); Mean Corpuscular HGB Conc 33.6 g/dl (31.0-37.0); Mean Corpuscular Hemoglobin 34.8 pg (25.0-35.0); Mean Corpuscular Volume 103 fL (80-100); Monocytes % (Auto) 11 % (0-12); Neutrophils # (Auto) 6.4 Thou/mm3 (1.8-7.7); Neutrophils % (Auto) 66 % (37-80); Nucleated Red Blood Cell % 0 /100 WBC (0); Platelet Count 226 Thou/mm3 (140-440); RDW Standard Deviation 54.5 fL (35.1-43.9); Red Blood Count 3.25 Miln/mm3 (4.50-5.90); White Blood Count 9.6 Thou/mm3 (3.8-10.6)
[2024-11-02 07:08] LABS: Alanine Aminotransferase 22 U/L (10-49); Albumin, Serum 4.9 gm/dL (3.5-5.0); Albumin/Globulin Ratio 1.8 (1.2-2.2); Alkaline Phosphatase 79 U/L (46-116); Anion Gap 11 (7-16); Aspartate Amino Transferase 22 U/L (0-34); BUN/Creatinine Ratio 7 Ratio (12-20); Bilirubin,Total 0.5 mg/dL (0.3-1.2); Blood Urea Nitrogen 51 mg/dL (9-23); Carbon Dioxide 31.4 mMol/L (20.0-31.0); Chloride 93 mMol/L (98-107); Creatinine (Component) 7.3 mg/dL (0.6-1.3); Estimated Creatinine Clearance 10.5 mL/min (>60); Globulin 2.8 gm/dL (2.3-3.5); Glucose 115 mg/dL (74-106); Magnesium 2.5 mg/dL (1.6-2.6); Osmolality,Calculated 284 (275-295); Phosphorous 7.1 mg/dL (2.4-5.1); Sodium 135 mMol/L (136-145); Thyroid Stimulating Hormone 0.92 uIU/mL (0.55-4.78); Total Protein 7.7 gm/dL (5.7-8.2); Troponin I 0.044 ng/mL (0.0-0.045); eGFR 8 See Note
[2024-11-02] MEDS: PANTOPRAZOLE INJ 40 MG VIAL IVP (08:15)
[2024-11-02] MEDS: cefTRIAXone/D5w 1gm IV premix 50 ML IV (08:18)
--- NOTE | 2024-11-02 10:43 | PD.NEPHPROG ---
Documentation for date of: 11/02/24 Subjective Subjective Interval history: Mr. Akins is a Grenadian-speaking 53-year-old male past medical history of ESRD on dialysis 3 times per week (Sunday//Sunday), uncontrolled hypertension, [id number]-vecevbsen diabetes mellitus type 2, GERD, dyslipidemia, legally blind from diabetes, fluid overload presented to the emergency department with a chief complaint of abdominal pain, nausea, liquidy stool associated with shortness of breath for the last 1 to 2 days. Patient denies any chest pain, fever or chills. Today his symptoms became worse and he decided to come to the ED. Denies headache, dizziness, chest pain, palpitations. Patient missed his dialysis session. Blood pressures at dialysis unit are always elevated. Apparently his home medications should be clonidine, hydralazine, Reglan, metoclopramide, valsartan, phosphorus binder, nifedipine (not sure if he is taking them or not). In the emergency department WBC 14.6, hemoglobin 11.8, platelets 230. Sodium 135, potassium 6, BUN 63, creatinine 9.6, blood sugar 154, A1c 6.5, calcium 10.5, phosphorus 5.5, magnesium 2.8, LFTs normal, troponin 0.04, CRP 1.5, albumin 5.5 chest x-ray showed no pneumonia or pulmonary edema gallbladder ultrasound showed cholelithiasis without cholecystitis. Patient admitted to medical floor with a diagnosis of possible gastroenteritis and was started on antibiotics. Renal consultation requested for need for dialysis. Patient currently seen on dialysis. 11/02/2024 patient currently seen on dialysis. Apparently his potassium was 6.0 despite doing dialysis yesterday. Decided to proceed with extra session today. Denies any chest pain. Abdominal pain much better. Review of Systems Review of Systems Narrative Review of Systems: CONSTITUTIONAL: Patient denies any fever, chills. Complaining of fatigue HEENT: Patient legally blind CARDIOVASCULAR: Patient denies any chest pain. Denies any shortness of breath, swelling in the lower extremities. PULMONARY: Patient complaining of shortness of breath GASTROINTESTINAL: Denies any abdominal pain. GENITOURINARY: Patient denies any urinary symptoms of burning or frequency or hematuria, denies any form in the urine. SKIN: Dialysis access MUSCULOSKELETAL: c/o joint pains. NEUROLOGICAL: Denies any neurological problems of strokes, seizures or confusion. Denies any memory problems. Exam Vital Signs Temp Pulse Resp BP Pulse Ox O2 Del Method 37.0 C 80 14 129/80 97 Room Air 11/02/24 16:00 11/02/24 16:00 11/02/24 16:00 11/02/24 16:00 11/02/24 16:00 11/02/24 12:00 Narrative Exam GENERAL APPEARANCE: Patient currently seen in dialysis Legally blind NECK: Neck supple, no JVD or bruit CARDIOVASCULAR: Heart regular, no murmurs LUNGS/CHEST: Chest clear to auscultation. No rales, rhonchi, wheezing ABDOMEN: Soft, nontender, nondistended. No masses. Normal bowel sounds. EXTREMITIES: No edema, clubbing or cyanosis. SKIN: Skin exam normal without any rashes. Fistula+ MUSCULOSKELETAL: Musculoskeletal exam normal PSYCHIATRIC: Normal mood, affect LYMPHATICS: No lymphadenopathy noted NEUROLOGICAL : No neurological deficits Objective Labs 11/02/24 04:55 11/02/24 04:55 Labs: Laboratory Results - last 24 hr 11/02/24 11/02/24 11/02/24 00:24 04:55 13:17 WBC 9.6 D RBC 3.25 L Hgb 11.3 L Hct 33.6 L MCV 103 H MCH 34.8 MCHC 33.6 RDW Std Deviation 54.5 H Plt Count 226 Neut % (Auto) 66 Lymph % (Auto) 20 [place] % (Auto) 11 Eos % (Auto) 2 Baso % (Auto) 1 Neut # (Auto) 6.4 Lymph # (Auto) 1.9 [place] # (Auto) 1.0 H Eos # (Auto) 0.2 Baso # (Auto) 0.1 Immature Gran # (Auto) 0.05 H Absolute Nucleated RBC 0.00 Immature Gran % 1 H Nucleated RBC % 0 Sodium 135 L Potassium 6.0 H D Chloride 93 L Carbon Dioxide 31.4 H Anion Gap 11 BUN 51 H Creatinine 7.3 H* D Estim Creat Clear Calc 10.5 L eGFR 8 L* BUN/Creatinine Ratio 7 L Glucose 115 H Calculated Osmolality 284 Calcium 10.0 Corrected Calcium 10.0 Phosphorus 7.1 H Magnesium 2.5 Total Bilirubin 0.5 AST 22 ALT 22 Alkaline Phosphatase 79 Troponin I 0.053 H* 0.044 0.027 Total Protein 7.7 Albumin 4.9 D Globulin 2.8 Albumin/Globulin Ratio 1.8 TSH 0.92 Assessment & Plan Additional Assessment & Plan Additional Plan: Mr. Akins is a Grenadian-speaking 54-year-old male past medical history of ESRD on dialysis 3 times per week (Sunday//Sunday), hypertension, rey-bwlpxnr-lvbubgfck diabetes mellitus type 2, GERD who came to the emergency department with a chief complaint of shortness of breath, abdominal pain, nausea and vomiting and found to have uncontrolled HTN. #ESRD on HD on Sunday//Sunday ? Monitor strict ins and outs ? Avoid nephrotoxic drugs ? Renally dose medications ? continue Nephrovite Patient currently seen on dialysis. Tolerating dialysis without any problems. Hemodialysis for 2.5 hours, 2K, ultrafiltration 3-3.5 L, Epogen 6000, no heparin ordered. Plan of care discussed with the dialysis nurse. Please see dialysis flowsheet for further details. Next dialysis will be Sunday. #Hypertension-poorly controlled On multiple home medications #GERD #Type 2 diabetes mellitus #Hyperlipidemia #Abdominal pain, nausea, vomiting - ?? Uremic gastritis vs phosphorus binder related vs sensipar at dialysis versus gastroenteritis. Postdialysis seems to be better. Thank you Dr. Pagan for allowing me to participate in the care of Mr. Weiner?
[2024-11-02] MEDS: ACETAMINOPHEN 325 MG TABLET 650 MG PO (10:57)
--- NOTE | 2024-11-02 11:06 | PC.SS ---
Patient is alert/oriented. Patient was in dialysis this morning. SS spoke to patient's sister, Tierra. Tierra is Mauritanian speaking only. [employer] Convey[employer] Operator used. Tierra states she will remain the alt medical decision maker and p.o.c. She states patient resides with their mother, Marcela. Patient is independent with ADL's. He is currently on dialysis with Dr. Camacho every //Sun. Patient uses a cane as needed. Patient takes [employer] transport or family takes him to appointments. Patient follows at [facility] with Dr. Tierra Crump. D/c plan remains to return home. Patient will need to be set up with [employer] transportation assistance upon discharge.
[2024-11-02 14:50] LABS: Troponin I 0.027 ng/mL (0.0-0.045)
--- NOTE | 2024-11-02 15:09 | PD.RESDS ---
Planned Discharge Date 11/02/24 DS: Providers Provider Date of admission: 11/01/24 05:29 Primary care physician: Physician No Primary/Family Admitting Provider: David Hong DO Attending Provider on Admission: David Hong DO Consults: 11/01/24 05:37 Consult to Nephrology Stat Comment: ESRD Consulting Provider: Sumeet Camacho 11/01/24 14:50 Consult to Gastroenterology Routine Comment: Consulting Provider: José Miguel Abad Attending Provider on DC: Nia Diana MD Discharging Provider: Nia Diana MD DS: Diagnosis Problem List Completed Was Problem List Reviewed/Reconciled?: Yes Hospital Course Hospital Course Hospital course: A 54-year-old male patient with past medical history of ESRD does not make urine on dialysis TTS, following up with Dr. Camacho, hypertension, diabetes mellitus type 2, retinopathy, hyperlipidemia, GERD, presented to the ED due to history of 1 day of intractable abdominal pain associated with N/V/D x 4 days. Reports extensive episodes of diarrhea and vomiting without signs of GI bleed. Associated with chills and sweats but no fevers. History of recurrent gastritis since 2 years ago with no definitive diagnosis ever made. He is anuric and denies s/s of urinary tract infection. Ultrasound shows cholelithiasis but no cholecystitis. Abdominal CT from November/2023 showed multiple nonobstructive left renal calculi but no other abnormalities. Has tachycardia, tachypnea and leukocytosis on admission. Symptoms improving. Currently afebrile.he was started on flagyl and ceftriaxone with prn zofran. GI was consulted , GI said it was most likely infectious enterocolitis or viral gastroenteritis unlikely inflammatory bowel disease unlikely symptomatic cholelithiasis. patient did not had any symptoms in hospital stay. he received his dialysis. Admission BP 200/107, HR 103. Likely volume overload as patient missed hemodialysis. Blood pressure improved after hemodialysis and with medications. His hyperkalemia resolved after dialysis session , he received 2 dialysis in the hospital . He is stable to go back home . Discharge instruction:Continue home medication continue scheduled dialysis Follow up with primary care provider within 1-2 weeks after discharge Come back to ED if symptoms worsens. Sepsis with 3/4 SIRS Acute gastritis- resolved Gastroenteritis-resolved NSTEMI type II Hypertensive urgencies (resolved) HTN HLD Hyperkalemia-resolved ESRD HD TTS Chronic normocytic anemia T2DM, controlled Case Discussed with my attending Dr Pagan, Nia Diana MD PGY- 3 Time Spent with Patient Time attestation: Total time spent providing and/or coordinating discharge services:>30 min Exam Vital Signs Temp Pulse Resp BP Pulse Ox O2 Del Method 97.9 F 73 18 144/83 H 99 Room Air 11/02/24 12:00 11/02/24 13:11/02/24 12:00 11/02/24 13:11/02/24 12:11/02/24 12:00 Narrative Exam GEN: AOx3, able to speak full sentences HEENT: NC/AC, congested conjunctiva, oral mucosa moist, neck supple CVS: RRR, S1-S2 present, no murmurs appreciated RESP: CTAB GI: soft,non distended, generalized mild tenderness, exaggerated NBS MSK: Left arm surgical fistula, able to move all 4 limbs, no lower extremity edema SKIN: warm and dry ACCOUNTING POLICY CONSULTANT: CN II-XII and Sensation grossly intact. Discharge Plan Plan Patient Disposition: HOME (Self Care) Prescriptions/Referrals Prescriptions/Med Rec: Continued clonidine HCl 0.1 mg Tablet 0.2 mg PO TID 30 Days Qty: 180 1RF valsartan 80 mg Tablet 160 mg PO BID 30 Days Qty: 120 1RF Hold Instructions: Resume on 12/10/23. Follow up with Dr. Camacho on when to resume hydralazine 100 mg tablet 100 mg PO TIDWM 30 Days Qty: 90 1RF metoclopramide HCl [Reglan] 5 mg tablet 5 mg PO TIDWMEAL Qty: 90 1RF nifedipine 60 mg Tablet Extended Release 24hr 60 mg PO BID metoclopramide HCl [Reglan] 10 mg tablet 10 mg PO Q6H PRN (Reason: nausea and vomiting) Qty: 20 0RF pantoprazole [Protonix] 40 mg tablet,delayed release (DR/EC) 40 mg PO QDAY Qty: 30 0RF alum-mag hydroxide-simeth [Maalox Advanced] 200-200-20 mg/5 mL suspension 15 ml PO QID PRN (Reason: indigestion) Qty: 3000 0RF Rx Instructions: administer between meals and at bedtime promethazine 50 mg tablet 50 mg PO TID PRN (Reason: sedation) Qty: 20 0RF Referrals: No Primary/Family,Physician [Primary Care Provider] - Patient/Caregiver Discharge Instructions Other Discharge Activity Instructions:: Continue home medication continue scheduled dialysis Follow up with primary care provider within 1-2 weeks after discharge Come back to ED if symptoms worsens. Continuar con la medicaci?n en casa. Continuar con la citas del di?lisis programada Jose L valentina laurita seguimiento con ambrose Doctor de atenci?n primaria dentro de 1 a 2 semanas despu?s del kevin. Regrese al servicio de urgencias si los s?ntomas empeoran. Education Materials: Hyperkalemia Dc, Bacterial Gastroenteritis, ED Diarrhea, Unknown Cause Print Language: [place] Zealander Stand Alone Forms: [place] Award Info., Patient Portal Info Letter Discharge Order Discharge Orders: Discharge (Routine); Ordered 11/02/24 Ordered By: Nia Diana Quality Discharge Quality Measures VTE prophylaxis MD Attestestation MD Attestation I reviewed labs, imaging, EKG, home medications and prior available records. Face to face evaluation was performed by me. I have personally examined the patient and discussed assessment and plan with the IM team. I reviewed the resident note and agree with the plan with exceptions as below. ESRD on hemodialysis Hyperkalemia Essential hypertension Acute gastroenteritis Symptoms of nausea/vomiting/diarrhea resolved. Likely gastroenteritis. Discussed with GI: No need for further inpatient workup Continue hemodialysis per nephrology schedule Monitor BMP Resume home BP medications Time spent is 40 minutes. More than 50% of the time was spent on patient education and coordination of care.
--- NOTE | 2024-11-02 15:12 | PC.NURSE ---
Dr. Abad notified pt being discharged and has not had a bowel movement to collect for sample. Order received to cancel orders for stool and no need for follow up with gastro.
--- NOTE | 2024-11-02 16:44 | ESPR_ITS ---
Documentation for date of: 11/02/24 Subjective Subjective Interval history: Case discussed with internal medicine team Okay to discharge patient home to be followed by the PCP No need for any invasive GI workup Exam Vital Signs Temp Pulse Resp BP Pulse Ox O2 Del Method 98.6 F 80 14 129/80 97 Room Air 11/02/24 16:00 11/02/24 16:00 11/02/24 16:00 11/02/24 16:00 11/02/24 16:00 11/02/24 12:00 Objective Labs 11/02/24 04:55 11/02/24 04:55 Labs: Laboratory Results - last 24 hr 11/01/24 11/01/24 11/02/24 12:43 18:50 00:24 WBC RBC Hgb Hct MCV MCH MCHC RDW Std Deviation Plt Count Neut % (Auto) Lymph % (Auto) [place] % (Auto) Eos % (Auto) Baso % (Auto) Neut # (Auto) Lymph # (Auto) [place] # (Auto) Eos # (Auto) Baso # (Auto) Immature Gran # (Auto) Absolute Nucleated RBC Immature Gran % Nucleated RBC % ESR 19 Sodium Potassium 4.8 D Chloride Carbon Dioxide Anion Gap BUN Creatinine Estim Creat Clear Calc eGFR BUN/Creatinine Ratio Glucose Calculated Osmolality Calcium Corrected Calcium Phosphorus Magnesium Total Bilirubin AST ALT Alkaline Phosphatase Troponin I 0.052 H* 0.053 H* C-Reactive Prot, Quant 1.5 H Total Protein Albumin Globulin Albumin/Globulin Ratio TSH 11/02/24 11/02/24 04:55 13:17 WBC 9.6 D RBC 3.25 L Hgb 11.3 L Hct 33.6 L MCV 103 H MCH 34.8 MCHC 33.6 RDW Std Deviation 54.5 H Plt Count 226 Neut % (Auto) 66 Lymph % (Auto) 20 [place] % (Auto) 11 Eos % (Auto) 2 Baso % (Auto) 1 Neut # (Auto) 6.4 Lymph # (Auto) 1.9 [place] # (Auto) 1.0 H Eos # (Auto) 0.2 Baso # (Auto) 0.1 Immature Gran # (Auto) 0.05 H Absolute Nucleated RBC 0.00 Immature Gran % 1 H Nucleated RBC % 0 ESR Sodium 135 L Potassium 6.0 H D Chloride 93 L Carbon Dioxide 31.4 H Anion Gap 11 BUN 51 H Creatinine 7.3 H* D Estim Creat Clear Calc 10.5 L eGFR 8 L* BUN/Creatinine Ratio 7 L Glucose 115 H Calculated Osmolality 284 Calcium 10.0 Corrected Calcium 10.0 Phosphorus 7.1 H Magnesium 2.5 Total Bilirubin 0.5 AST 22 ALT 22 Alkaline Phosphatase 79 Troponin I 0.044 0.027 C-Reactive Prot, Quant Total Protein 7.7 Albumin 4.9 D Globulin 2.8 Albumin/Globulin Ratio 1.8 TSH 0.92 Impressions Impression: # Nausea vomiting resolved # Diarrhea resolved Okay to discharge patient home to be followed by the PCP Assessment & Plan A&P Narrative # Nausea vomiting could be related to gastroparesis in the setting of chronic renal disease however patient gets complicated with the onset of diarrhea and all the symptoms occurred at the same time could be a case of infectious enterocolitis or viral gastroenteritis unlikely inflammatory bowel disease unlikely symptomatic cholelithiasis Plan Complete stool panel Even if negative possible endoscopy prior to discharge # Cholelithiasis asymptomatic # ESRD on hemodialysis Thank you very much for the opportunity to participate in the care of this patient Time Spent With Patient Time: Total time spent is greater than 50% in coordination of care (as documented) at patient's floor/unit and/or counseling patient:
[2024-11-07 06:45] LABS: ANCA Screen NEGATIVE (NEGATIVE)
[2024-11-07 06:46] LABS: Myeloperoxidase Ab <1.0 AI (<1.0); Proteinase-3 Ab <1.0 AI (<1.0)
== END 2024-11-02 17:14 | disposition home or self-care (01) | DRG 720 ==
LOC: SERX 11-01 04:58 → SERHOLD 11-01 06:11 → S3NX 11-01 15:27
PROVIDERS: Nurse Practitioner Family; Specialist; Admitting Provider Student in an Organized Health Care Education/Training Program; Emergency Provider Student in an Organized Health Care Education/Training Program; Visit Provider Student in an Organized Health Care Education/Training Program
DX: A41.9 Sepsis, unspecified organism (principal); K80.20 Calculus of gallbladder without cholecystitis without obstruction; N18.6 End stage renal disease; K29.00 Acute gastritis without bleeding; K52.9 Noninfective gastroenteritis and colitis, unspecified; I21.A1 Myocardial infarction type 2; I16.0 Hypertensive urgency; H54.8 Legal blindness, as defined in USA; E11.22 Type 2 diabetes mellitus with diabetic chronic kidney disease; D63.1 Anemia in chronic kidney disease; K21.9 Gastro-esophageal reflux disease without esophagitis; E11.319 Type 2 diabetes mellitus with unspecified diabetic retinopathy without macular edema; E87.5 Hyperkalemia; R06.6 Hiccough; I12.0 Hypertensive chronic kidney disease with stage 5 chronic kidney disease or end stage renal disease; I1A.0 Resistant hypertension; E83.52 Hypercalcemia; E87.79 Other fluid overload; E78.5 Hyperlipidemia, unspecified; Z99.2 Dependence on renal dialysis; Z87.891 Personal history of nicotine dependence; Z79.84 Long term (current) use of oral hypoglycemic drugs; Z79.899 Other long term (current) drug therapy
CPT/HCPCS: 36415; 71045; 76705; 80053; 81001; 83036; 83690; 83735; 83993; 84100; 84132; 84443; 84484; 85025; 85652; 86021; 86036; 86140; 87015; 87040; 87045; 87046; 87086; 87177; 87205; 87209; 87329; 87493; 87899; 93005; 93225; 96361; 96365; 96367; 96375; 99285; J0360; J0612; J0696; J1815; J2405; J2470; J2765; J3360; J3490; J7050; A9270; J1836; J1920

== ENCOUNTER 2024-11-28 05:03 | Emergency (ER) | payer MEDICAID, SELFPAY ==
[2024-11-28] VITALS (26 sets, daily range): BP systolic 139–235; BP diastolic 93–132; PULSE 75–114; RESP 12–28; TEMP 36.7–37.1; O2SAT 87–100; BMI 24.8
--- NOTE | 2024-11-28 05:30 | EKG_ITS ---
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
--- NOTE | 2024-11-28 05:30 | XR_ITS ---
Examination: AP chest single view Technique one AP portable upright chest single view Exam date and time: November 28, 2024 0545 hours Comparison November 01, 2024 INDICATIONS: Chest pain today. FINDINGS: Subtle opacity at the lung bases Minor prominence left ventricle Reduced inspiratory effort IMPRESSION: Bibasilar bronchitis versus early bronchopneumonia, clinical correlation advised
--- NOTE | 2024-11-28 05:33 | XR_ITS ---
Examination: CT abdomen and pelvis without contrast. Coronal 3-D reconstructions. Sagittal 2-D reconstructions. Date and time of exam:November 27 100,025 at 0654 hrs. Indications: Epigastric pain nausea vomiting beginning ten hours ago CTDI: vol (mGy): 6.91 DLP: (mGycm): 387 Technique: Axial images of the abdomen have been obtained, 3 mm slice thickness Intravenous contrast material has not been administered. Low dose protocols were performed. One or more of the following dose reduction techniques were used; automated exposure control, adjustment of the mA and/or KV according to patient size, use of iterative reconstruction technique. Findings: Atelectasis versus mild pneumonia at the right lung base Small retrocardiac gastric hernia No liver lesions No gallstones No pancreatic or adrenal mass Atrophic kidneys 4 mm 3 mm nonobstructing left renal calculi, 1 mm right renal calculus Abdominal aorta normal size Diffuse colonic diverticulosis Normal appendix No bowel obstruction Abundant stool in the rectum Transverse prostate dimension 4.6 cm Contracted urinary bladder Moderate osteopenia 9 mm fat-containing umbilical hernia Impression: Atelectasis versus mild pneumonia right lung base Bilateral nonobstructing renal calculi Normal appendix Diffuse colonic diverticulosis, no diverticulitis No bowel obstruction
--- NOTE | 2024-11-28 05:33 | PD.EDRME ---
Rapid Medical Screening Exam [facility] Arrival date/time: 11/28/24 05:03 54M with history of ESRD (TRS; last one yesterday), DM and HTN presents to ED with 1 day of epigastric pain and N/V. Chief Complaint: Abdominal Pain Vital signs: Vital Signs Temperature 98.7 F 11/28/24 05:12 Pulse Rate 114 H 11/28/24 05:12 Respiratory Rate 19 11/28/24 05:12 Blood Pressure 222/115 H 11/28/24 05:12 Pulse Oximetry (%) 100 11/28/24 05:12 Oxygen Delivery Method Room Air 11/28/24 05:12
[2024-11-28] MEDS: PANTOPRAZOLE INJ 40 MG VIAL IVP (05:50)
[2024-11-28] MEDS: ONDANSETRON INJ 2 MG/ML INJ 2 ML 4 MG IV (05:51)
--- NOTE | 2024-11-28 06:10 | EDNOTE_ITS ---
ED Abdominal Pain RME/HPI General Chief Complaint: Abdominal Pain Stated complaint: ABD PAIN Time seen by provider: 11/28/24 05:37 Arrival date/time: 11/28/24 05:03 RME / HPI RME / HPI narrative: 11/28/24 05:03 54M with history of ESRD (TRS; last one yesterday), DM and HTN presents to ED with 1 day of epigastric pain and N/V. ------- Main ED Evaluation: Patient is a 54-year-old Emirati-speaking male with past medical history of ESRD on HD //Sat with Dr. Camacho, type 2 diabetes, and hypertension who presents to the ED on 11/28/2024 with epigastric abdominal pain, nausea, and vomiting since 9 pm last night. History obtained with the help of [place] telephone american sign language interpreter. The pain is described as 10/10, constant, without radiation outside of the epigastric region. Patient notes the pain gets worse after eating. Pain is relieved with IV medication. Patient did not try any medication at home to relieve the pain. Vomitus is clear and yellow. He denies any hematemesis or hematochezia. Last bowel movement with 2 hours ago and normal, no changes to bowel habits. Patient does not make any urine. He received his regular full dialysis session yesterday without any symptoms. Denies history of abdominal s urgery. He reports compliance with his home medications, but states that he vomited them last night. Patient otherwise denies fevers, chest pain, shortness of breath. Patient reports history of similar prior episodes, last time was about 1 month ago and patient was admitted. On review of the record, patient did not have any procedures done but ANCA, Anti-proteinase 3, and Anti-myeloperoxidase were negative. MD complaint: abdominal pain Onset (ago): hour(s) Consistency: constant Location: epigastric Severity: similar to previous episodes Severity scale (1-10): 10 Quality: other ( tender ) Radiation: none Migration to: no migration Relieving factors: medication Exacerbating factors: eating Context: history of similar episodes Associated symptoms: nausea, vomiting and chills (tremors) Related Data Home Medications ?Medication ?Instructions ?Recorded ?Confirmed nifedipine 60 mg tablet,extended 60 mg PO BID 01/17/23 04/18/23 release 24 hr Previous Rx's ?Medication ?Instructions ?Recorded clonidine HCl 0.1 mg tablet 0.2 mg (2 x 0.1 mg) PO TID 30 days 11/25/22 #180 tabs hydralazine 100 mg tablet 100 mg PO TIDWM 1 month #90 tabs 11/25/22 metoclopramide HCl 5 mg tablet 5 mg PO TIDWMEAL #90 ta bs 11/25/22 (Reglan) valsartan 80 mg tablet 160 mg (2 x 80 mg) PO BID 30 days 11/25/22 #120 tabs aluminum-mag hydroxide-simethicone 15 ml PO QID PRN in digestion 03/26/24 200 mg-200 mg-20 mg/5 mL oral susp #3,000 mL (Maalox Advanced) metoclopramide HCl 10 mg tablet 10 mg PO Q6H PRN nause a and 03/26/24 (Reglan) vomiting #20 tabs pantoprazole 40 mg tablet,delayed 40 mg PO QDAY #30 ta bs 03/26/24 release (Protonix) promethazine 50 mg tablet 50 mg PO TID PRN sedation #2 0 tabs 03/26/24 dicyclomine 20 mg tablet 20 mg PO TID PRN abdominal p ain 11/29/24 #20 tabs metoclopramide HCl 10 mg tablet 10 mg PO Q6H PRN nause a and 11/29/24 (Reglan) vomiting #20 tabs pantoprazole 40 mg tablet,delayed 40 mg PO QDAY #30 ta bs 11/29/24 release (Protonix) Allergies Allergy/AdvReac Type Severity Reaction Status Date / Time UNKNOWN HIGH BP MED Allergy Uncoded 11/29/24 10:47 Review of Systems Review of Systems Systems Reviewed: All systems reviewed, normal except as documented Past Medical History Past Medical History Comments PMH COMMENT: Past Medical History: ESRD on HD //Sun with Dr. Camacho, type 2 diabetes, and hypertension Family History: Denies known family history of diabetes, hypertension, [place], stroke, cardiac disease Surgical History: Left arm fistula Social History: Denies history of smoking, current alcohol use about 6 beers average weekly, denies recreational drug use Current Medications: Clonidine 0.2 mg TID, valsartan 160 mg BID, hydralazine 100 mg TID, nifedipine 60 mg BID, pantoprazole 40 mg qday, calcium acetate 1334 mg TIDWM, ferrous sulfate 325 mg BID, sevelamer 1600 mg TIDWM (Source: Patient discharge summary 11/02/2024, recent pharmacy prescriptions) Allergies: No known drug allergies ED Exam Narrative Physical exam: Physical Exam General: Awake and in mild distress, tearful. Patient is actively heaving and spitting up during examination. HEENT: Normocephalic, atraumatic, mucous membranes moist. Heart: Regular rate and rhythm, no murmurs. Lungs: Clear to auscultation with no wheezing or crackles. Abdomen: Soft, nondistended, mild tenderness to palpation of the epigastric region, positive bowel sounds. ?No guarding or rebound tenderness. Mcgrath's sign equivocal, patient does endorse pain but not particularly more than palpation of the epigastric region. Neurologic: Alert and oriented x3, no gross neurological deficit, and patient able to move all 4 extremities. Extremities: No edema. Right arm fistula. Skin: No rash or ecchymoses. Course Quality Measures none Orders Category Date Time Status EKG (ED ONLY) *Do not use* NOW Care 11/28/24 05:30 Completed Insert IV NOW Care 11/28/24 05:[address] abdomen pelvis wo con Stat Exams 11/28/24 05:33 Completed EKG (ED Only) Stat Exams 11/28/24 05:30 Draft XR chest 1V portable Stat Exams 11/28/24 05:30 Completed CBC Stat Lab 11/28/24 05:45 Completed Comprehensive Metabolic Panel Stat Lab 11/28/24 05:45 Completed Lipase Stat Lab 11/28/24 05:45 Completed Troponin I Stat Lab 11/28/24 05:45 Completed DiphenhydrAMINE INJ [Benadryl Inj] Med 11/28/24 08:35 Discontinued 50 mg IVP X1 ONE LORazepam [Ativan Inj] Med 11/28/24 11:29 Discontinued 1 mg IVP X1 ONE Labetalol IV [Trandate IV] Med 11/28/24 06:35 Discontinued 10 mg IVP X1 ONE Labetalol IV [Trandate IV] Med 11/28/24 10:21 Discontinued 10 mg IVP X1 ONE Lidocaine 2% Viscous [Xylocaine 2% Viscous] Med 11/28/24 06:31 Discontinued 15 ml PO X1 ONE Metoclopramide Inj [Reglan Inj] Med 11/28/24 08:32 Discontinued 10 mg IVP X1 ONE Ondansetron Inj [Zofran Inj] Med 11/28/24 05:30 Discontinued 4 mg IV X1 ONE Pantoprazole Inj [Protonix Inj] Med 11/28/24 05:37 Discontinued 40 mg IVP X1 ONE hydrALAZINE INJ [Apresoline Inj] Med 11/28/24 11:29 Discontinued 10 mg IV X1 ONE mg Hyd/Al Hyd/Misael Susp [Maalox Susp] Med 11/28/24 06:31 Discontinued 30 ml PO X1 ONE Reevaluation(s) Reevaluation #1: 10:22 Patient feeling better finally after receiving Reglan and Benadryl. BP is still elevated at 214/104, most likely due to pain and/or increasing intrathoracic pressure due to heaving and vomiting as well as the patient not having taken his home medications due to vomiting. Will administer a second dose of labetalol 10 mg IV. Reevaluation #2: 11:20 Patient seen and examined, used [place] telephone american sign language interpreter. Patient reports improvement of the abdominal pain to a 8/10 from 07/17. He is notably dry heaving after I walked into the room and stopped speaking to him. Patient was told that he will be discharged with oral Reglan and he expresses understanding. Patient requests more medication for his pain right now. Will given Ativan 1 mg IV x1. BP is still very elevated despite 20 mg IV labetalol. Will give hydralazine 10 mg IV x1. Reevaluation #3: 13:20 Patient apparently refusing discharge, stating that he is still having pain and that last time patient was admitted and stayed for 3 days. Spoke to the patient again through telephone american sign language interpreter, patient verbalizes understanding for discharge plan. 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 Vital Signs Vital signs: Vital Signs Temperature 98.7 F 11/28/24 05:12 Pulse Rate 114 H 11/28/24 05:12 Respiratory Rate 19 11/28/24 05:12 Blood Pressure 222/115 H 11/28/24 05:12 Pulse Oximetry (%) 100 11/28/24 05:12 Oxygen Delivery Method Room Air 11/28/24 05:12 Procedures -ED EKG Interpretation #1: Date of EK11/28/24 Time of EK:41 Rate: 76 Interpretation: Interpreted by me EKG Impression: Normal sinus rhythm and No acute ST-T changes Abdominal Pain MDM MDM Narrative MDM Narrative:: Patient presents with acute onset nausea, vomiting, and epigastric abdominal pain with a history of similar episodes. Differentials include acute cholecystitis, symptomatic cholelithiasis with biliary colic, gastroenteritis, gastroparesis, peptic ulcer disease, gastric hernia, H. pylori, pancreatitis, small bowel obstruction, Ban-Dupree, volvulus, uremia, electrolyte abnormality, nephrolithiasis. CT report does not show any significant pathology and review of the images myself shows no significant pathology. Patient will be treated symptomatically and discharged, advised follow up with PCP for potential GI consult for EGD and/or general surgery consult for possible symptomatic cholelithiasis (as seen on previous visit gallbladder US results) if patient keeps having attacks. Patient data External records reviewed:: [facility] previous records Clinical information provided by:: patient Social determinants that could affect healthcare access:: none Patient has the following chronic illnesses:: As above How is presenting disease/condition affected by chronic disease/condition?: uneffected by Evaluation data The following diagnostics were reviewed and interpreted by me:: lab results, radiology exam(s) and EKG tracing(s) Lab and/or radiology exams considered but not ordered:: Ordered Interpretation Summary: ------ CT abdomen and pelvis without contrast. Findings: Atelectasis versus mild pneumonia at the right lung base Small retrocardiac gastric hernia No liver lesions No gallstones No pancreatic or adrenal mass Atrophic kidneys 4 mm 3 mm nonobstructing left renal calculi, 1 mm right renal calculus Abdominal aorta normal size Diffuse colonic diverticulosis Normal appendix No bowel obstruction Abundant stool in the rectum Transverse prostate dimension 4.6 cm Contracted urinary bladder Moderate osteopenia 9 mm fat-containing umbilical hernia Impression: Atelectasis versus mild pneumonia right lung base Bilateral nonobstructing renal calculi Normal appendix Diffuse colonic diverticulosis, no diverticulitis No bowel obstruction ------ Chest X-ray AP single view. FINDINGS: Subtle opacity at the lung bases Minor prominence left ventricle Reduced inspiratory effort IMPRESSION: Bibasilar bronchitis versus early bronchopneumonia, clinical correlation advised ------ Medications / Prescriptions Medications or Prescriptions considered but not ordered:: Given Medication administrations:: Medication Administration History Discontinued Medications Al Hydrox/Mg Hydrox/Simethicone (Mg Hyd/Al Hyd/Misael (Maalox Reg) Susp 30 Ml Udc) 30 ml PO X1 ONE Stop: 11/28/24 06:32 Last Admin: 11/28/24 07:16 Dose: 30 ml Documented By: KRISTI Diphenhydramine HCl (Diphenhydramine Inj 50 Mg/Ml Vial) 50 mg IVP X1 ONE Stop: 11/28/24 08:36 Last Admin: 11/28/24 08:50 Dose: 50 mg Documented By: KRISTI Hydralazine HCl (Hydralazine Inj 20 Mg/Ml Vial) 10 mg IV X1 ONE Stop: 11/28/24 11:30 Last Admin: 11/28/24 11:49 Dose: 10 mg Documented By: KRISTI Labetalol HCl (Labetalol Inj 5 Mg/Ml Vial 20 Ml) 10 mg IVP X1 ONE Stop: 11/28/24 06:36 Last Admin: 11/28/24 07:13 Dose: 10 mg Documented By: KRISTI Labetalol HCl (Labetalol Inj 5 Mg/Ml Vial 20 Ml) 10 mg IVP X1 ONE Stop: 11/28/24 10:22 Last Admin: 11/28/24 10:28 Dose: 10 mg Documented By: KRISTI Lidocaine HCl (Lidocaine Viscous 2% 15 Ml Udc) 15 ml PO X1 ONE Stop: 11/28/24 06:32 Last Admin: 11/28/24 07:16 Dose: 15 ml Documented By: KRISTI Lorazepam (Lorazepam 2 Mg/Ml Vial) 1 mg IVP X1 ONE Stop: 11/28/24 11:30 Last Admin: 11/28/24 11:49 Dose: 1 mg Documented By: KRISTI Metoclopramide HCl (Metoclopramide Inj 5 Mg/Ml Vial 2 Ml) 10 mg IVP X1 ONE; Protocol Stop: 11/28/24 08:33 Last Admin: 11/28/24 08:50 Dose: 10 mg Documented By: KRISTI Ondansetron HCl (Ondansetron Inj 2 Mg/Ml Inj 2 Ml) 4 mg IV X1 ONE; Protocol Stop: 11/28/24 05:31 Last Admin: 11/28/24 05:51 Dose: 4 mg Documented By: CHRYSTAL Pantoprazole Sodium (Pantoprazole Inj 40 Mg Vial) 40 mg IVP X1 ONE Stop: 11/28/24 05:38 Last Admin: 11/28/24 05:50 Dose: 40 mg Documented By: EE Given Consultations Consultation(s) initiated? (list below): No Diagnosis Differential diagnosis abdominal pain: abdominal pain, gastroenteritis and pancreatitis Most likely diagnosis given after review of the tests above:: Gastroenteritis, peptic ulcer disease, symptomatic cholelithiasis Admission Indicated Admission indicated?: not indicated Admission Request Was there a request for admission?: No Disposition Plan Disposition Plan: Discharge Discharge Attestation Discharge Attestation: The patient and all family members were given an opportunity to ask questions and understood the discharge instructions. Discharge instructions specifically effects, indications for sooner follow up or return to the emergency department, and the expected course of current diagnosis. Patient condition: Stable Discharge Plan Plan Patient Disposition: HOME (Self Care) Patient condition on transfer: Stable Prescriptions/Referrals Prescriptions/Med Rec: No Action clonidine HCl 0.1 mg Tablet 0.2 mg PO TID 30 Days Qty: 180 1RF valsartan 80 mg Tablet 160 mg PO BID 30 Days Qty: 120 1RF hydralazine 100 mg tablet 100 mg PO TIDWM 30 Days Qty: 90 1RF metoclopramide HCl [Reglan] 5 mg tablet 5 mg PO TIDWMEAL Qty: 90 1RF nifedipine 60 mg Tablet Extended Release 24hr 60 mg PO BID metoclopramide HCl [Reglan] 10 mg tablet 10 mg PO Q6H PRN (Reason: nausea and vomiting) Qty: 20 0RF pantoprazole [Protonix] 40 mg tablet,delayed release (DR/EC) 40 mg PO QDAY Qty: 30 0RF alum-mag hydroxide-simeth [Maalox Advanced] 200-200-20 mg/5 mL suspension 15 ml PO QID PRN (Reason: indigestion) Qty: 3000 0RF Rx Instructions: administer between meals and at bedtime promethazine 50 mg tablet 50 mg PO TID PRN (Reason: sedation) Qty: 20 0RF pantoprazole [Protonix] 40 mg tablet,delayed release (DR/EC) 40 mg PO QDAY Qty: 30 0RF metoclopramide HCl [Reglan] 10 mg tablet 10 mg PO Q6H PRN (Reason: nausea and vomiting) Qty: 20 0RF dicyclomine 20 mg tablet 20 mg PO TID PRN (Reason: abdominal pain) Qty: 20 0RF Referrals: Tierra Crump MD [Primary Care Provider] - In 1 week Problem List Clinical Impression: Diabetic gastroparesis, Intractable vomiting, Acute epigastric pain Patient/Caregiver Discharge Instructions Education Materials: Gastroparesis, Delayed Gastric Emptying, ED Diet for Vomiting or ..., ED Vomiting (Adult), ED Diabetic Gastroparesis Additional Instructions: On your ED visit today, labs tests were done which were normal for you, including a CBC and CMP. A CT scan of the abdomen/pelvis was completed which was normal. There is no bowel obstruction, no diverticulitis, no cholecystitis (gallbladder inflammation), and no inflammation of the appendix. There are some kidney stones within both kidneys but they are inside of the kidneys and are not causing any problems. Please make an appointment with your primary doctor and request consultation with a Safety Administrator specialist if you keep having symptoms. You may also need a General Surgery referral if you keep having symptoms because past ultrasound studies over the last 6 months showed stones in the gallbladder, this may cause intermittent episodes of pain, nausea, and vomiting. You can take the prescribed medication for nausea, Reglan, up to three times a day. ----- via Google translate En ambrose visita al [facility], se le realizaron pruebas de laboratorio que resultaron normales, incluido un hemograma completo y un recuento sangu?toya completo. Se realiz? valentina tomograf?a computarizada del abdomen y la pelvis que result? normal. No hay obstrucci?n intestinal, diverticulitis, colecistitis (inflamaci?n de la ves?cula biliar) ni inflamaci?n del ap?ndice. Hay algunos c?lculos renales en ambos ri?ones, elyssa est?n dentro de los ri?ones y no est?n causando alice?n problema. Solicite valentina laurita con ambrose m?dico de cabecera y valentina consulta con un gastroenter?logo especialista si sigue teniendo s?ntomas. Tambi?n es posible que necesite valentina derivaci?n a cirug?a general si sigue teniendo s?ntomas porque los estudios de ultrasonido anteriores de los ?ltimos 6 meses mostraron c?lculos en la ves?cula biliar, lo que puede causar episodios intermitentes de dolor, n?useas y v?mitos. Puede davida el medicamento recetado para las n?useas, Reglan, hasta lasha veces al d?a. Print Language: Emir[place] Stand Alone Forms: Sonam Award Info., Patient Portal Info Letter MD Attestation MD Attestation The patient was seen by the PGY 2. I, the supervising physician, also encountered and examined the patient and remained present during the entire ER visit. With the PGY 2 we formulated the encounter, workup, management, treatment, and medical decision making. I agree with the plan and documentation.
[2024-11-28 06:14] LABS: Basophils # (Auto) 0.1 Thou/mm3 (0.0-0.2); Basophils % (Auto) 1 % (0-2.5); Eosinophils % (Auto) 0 % (0-10); Hematocrit 29.7 % (41.0-53.0); Hemoglobin 10.5 g/dL (13.5-16.0); Immature Granulocytes % (Auto) 1 % (0-0); Immature Granulocytes Auto 0.07 Thou/mm3 (0.00-0.00); Lymphocytes # (Auto) 0.8 Thou/mm3 (1.0-4.8); Lymphocytes % (Auto) 7 % (10-50); Mean Corpuscular HGB Conc 35.4 g/dl (31.0-37.0); Mean Corpuscular Hemoglobin 35.2 pg (25.0-35.0); Mean Corpuscular Volume 100 fL (80-100); Monocytes # (Auto) 0.6 Thou/mm3 (0.0-0.8); Monocytes % (Auto) 5 % (0-12); Neutrophils # (Auto) 9.8 Thou/mm3 (1.8-7.7); Neutrophils % (Auto) 87 % (37-80); Nucleated Red Blood Cell % 0 /100 WBC (0); Platelet Count 282 Thou/mm3 (140-440); RDW Standard Deviation 54.2 fL (35.1-43.9); Red Blood Count 2.98 Miln/mm3 (4.50-5.90); White Blood Count 11.3 Thou/mm3 (3.8-10.6)
[2024-11-28 06:44] LABS: Alanine Aminotransferase 17 U/L (10-49); Albumin, Serum 5.1 gm/dL (3.5-5.0); Albumin/Globulin Ratio 1.6 (1.2-2.2); Alkaline Phosphatase 88 U/L (46-116); Anion Gap 15 (7-16); Aspartate Amino Transferase 22 U/L (0-34); BUN/Creatinine Ratio 3 Ratio (12-20); Bilirubin,Total 0.4 mg/dL (0.3-1.2); Blood Urea Nitrogen 17 mg/dL (9-23); Calcium 10.5 mg/dL (8.3-10.6); Calcium (Corrected) 10.5 mg/dL (8.5-10.1); Carbon Dioxide 30.9 mMol/L (20.0-31.0); Chloride 87 mMol/L (98-107); Creatinine (Component) 5.5 mg/dL (0.6-1.3); Estimated Creatinine Clearance 14.5 mL/min (>60); Globulin 3.2 gm/dL (2.3-3.5); Glucose 197 mg/dL (74-106); Lipase 71 U/L (12-53); Osmolality,Calculated 272 (275-295); Potassium 4.9 mMol/L (3.4-5.1); Sodium 133 mMol/L (136-145); Total Protein 8.3 gm/dL (5.7-8.2); Troponin I < 0.020 ng/mL (0.0-0.045); eGFR 12 See Note
[2024-11-28] MEDS: LABETALOL INJ 5 MG/ML VIAL 20 ML 10 MG IVP ×2 (07:13→10:28)
[2024-11-28] MEDS: MG HYD/AL HYD/SIME (Maalox Reg) SUSP 30 ML UDC PO (07:16)
[2024-11-28] MEDS: LIDOCAINE VISCOUS 2% 15 ML UDC PO (07:16)
[2024-11-28] MEDS: DiphenhydrAMINE INJ 50 MG/ML VIAL IVP (08:50)
[2024-11-28] MEDS: METOCLOPRAMIDE INJ 5 MG/ML VIAL 2 ML 10 MG IVP (08:50)
[2024-11-28] MEDS: LORazepam 2 MG/ML VIAL 1 MG IVP (11:49)
[2024-11-28] MEDS: hydrALAZINE INJ 20 MG/ML VIAL 10 MG IV (11:49)
== END 2024-11-28 13:47 | disposition home or self-care (01) ==
PROVIDERS: Physician Assistant; Emergency Provider Emergency Medicine; PCP Obstetrics & Gynecology
DX: E11.43 Type 2 diabetes mellitus with diabetic autonomic (poly)neuropathy (principal); K31.84 Gastroparesis; I12.0 Hypertensive chronic kidney disease with stage 5 chronic kidney disease or end stage renal disease; E11.22 Type 2 diabetes mellitus with diabetic chronic kidney disease; N18.6 End stage renal disease; Z99.2 Dependence on renal dialysis
CPT/HCPCS: 36415; 71045; 74176; 80053; 83690; 84484; 85025; 93005; 96374; 96375; 99284; J0360; J1200; J2060; J2405; J2470; J2765; J3490; A9270; J1920

== ENCOUNTER 2024-11-29 10:34 | Emergency (ER) | payer MEDICAID, SELFPAY ==
[2024-11-29] VITALS (8 sets, daily range): BP systolic 209–244; BP diastolic 86–118; PULSE 68–113; RESP 15–20; TEMP 37.2–37.4; O2SAT 98–100; BMI 27.8
--- NOTE | 2024-11-29 11:42 | XR_ITS ---
Examination: AP chest single view Technique one AP portable upright chest single view Exam date and time: November 29, 2024 11:56 AM Comparison November 28, 2024 Indications: Vomiting today. Findings: Mild prominence of ventricle No aspiration pneumonia The osseous structures are intact Impression: Negative for aspiration pneumonia
--- NOTE | 2024-11-29 11:44 | EDNOTE_ITS ---
<Statement entered by Zunilda Strauss MD - 11/29/24 23:42> As co-signing physician, I was present and available for consult prn. I concur with the plan and care as documented by the midlevel provider. Nausea/Vomit./Diarrhea-RME/HPI General Chief complaint: Nausea/Vomiting/Diarrhea Stated complaint: VOMITING, NAUSEA Time Seen by Provider: 11/29/24 11:38 Arrival date/time: 11/29/24 10:34 RME / HPI RME / HPI Narrative: 54-year-old male patient came in for evaluation regarding epigastric pain. Onset of symptoms for the last 2 days as epigastric pain, associated with vomiting, dry heaving, severity moderate. Patient was seen here yesterday for the same complaints and workup was done including CT scan of the abdomen. Patient did not go to his hemodialysis today due to not feeling well especially vomiting. Patient denies any blood in the vomiting. Denies any diarrhea or constipation. Denies any fever diarrhea or other complaints medication was taken prior travel. Patient's PCP is Dr. Camacho. Related Data Home Medications ?Medication ?Instructions ?Recorded ?Confirmed nifedipine 60 mg tablet,extended 60 mg PO BID 01/17/23 04/18/23 release 24 hr Previous Rx's ?Medication ?Instructions ?Recorded clonidine HCl 0.1 mg tablet 0.2 mg (2 x 0.1 mg) PO TID 30 days 11/25/22 #180 tabs hydralazine 100 mg tablet 100 mg PO TIDWM 1 month #90 tabs 11/25/22 metoclopramide HCl 5 mg tablet 5 mg PO TIDWMEAL #90 ta bs 11/25/22 (Reglan) valsartan 80 mg tablet 160 mg (2 x 80 mg) PO BID 30 days 11/25/22 #120 tabs aluminum-mag hydroxide-simethicone 15 ml PO QID PRN in digestion 03/26/24 200 mg-200 mg-20 mg/5 mL oral susp #3,000 mL (Maalox Advanced) metoclopramide HCl 10 mg tablet 10 mg PO Q6H PRN nause a and 03/26/24 (Reglan) vomiting #20 tabs pantoprazole 40 mg tablet,delayed 40 mg PO QDAY #30 ta bs 03/26/24 release (Protonix) promethazine 50 mg tablet 50 mg PO TID PRN sedation #2 0 tabs 03/26/24 metoclopramide HCl 5 mg tablet 5 mg PO TID PRN nausea and 11/28/24 vomiting 1 week #21 tabs dicyclomine 20 mg tablet 20 mg PO TID PRN abdominal p ain 11/29/24 #20 tabs metoclopramide HCl 10 mg tablet 10 mg PO Q6H PRN nause a and 11/29/24 (Reglan) vomiting #20 tabs pantoprazole 40 mg tablet,delayed 40 mg PO QDAY #30 ta bs 11/29/24 release (Protonix) Allergies Allergy/AdvReac Type Severity Reaction Status Date / Time UNKNOWN HIGH BP MED Allergy Uncoded 11/29/24 10:47 Review of Systems Review of Systems Narrative Review of Systems: Review of system reviewed and within normal limits except mentioned in HPI ED Exam Narrative Physical exam: VITAL SIGNS: Reviewed. GENERAL APPEARANCE: Alert and interactive, follows commands, no acute distress, HEAD AND FACE: Non-traumatic. ENT: PERRL, pink conjunctivitis, eyelid no trauma, Mucous membrane dry NECK: Supple, nontender, no nuchal rigidity. CHEST: No tenderness, no crepitus, no paradoxical movement, no retractions. LUNGS: Clear, well ventilated, symmetric, no rales, no wheezing, no ronchi, no stridor, good breath sounds bilaterally. HEART: Regular rate, regular rhythm, no murmur, no gallops. ABDOMEN: Soft, positive bowel sounds, nondistended, no guarding, epigastric tenderness, no rebound, no masses, RECTAL: Deferred. GENITAL: Deferred. NEUROLOGICAL: Gross motor function intact sensory function intact, Appropriate for age. MUSCULOSKELETAL: low back nontender, full range of motion. EXTREMITIES: Nontender, full range of motion. SKIN: Color pink, dry, no rash, no lacerations, no abrasions, no contusions. LYMPHATICS: Deferred. Course Quality Measures none Orders Category Date Time Status Bedside Blood Glucose Q2HX3 Care 11/29/24 13:16 Completed EKG (ED ONLY) *Do not use* NOW Care 11/29/24 11:44 Completed EKG (ED Only) Stat Exams 11/29/24 11:44 Draft XR chest 1V Stat Exams 11/29/24 11:42 Completed Acetone [Beta Hydroxybutyrate] Stat Lab 11/29/24 12:18 Completed B-Type Natriuretic Peptide Stat Lab 11/29/24 12:18 Completed CBC Stat Lab 11/29/24 12:18 Completed Comprehensive Metabolic Panel Stat Lab 11/29/24 12:18 Completed Partial Thromboplastin Time Stat Lab 11/29/24 12:18 Completed Potassium Stat Lab 11/29/24 17:00 Completed Prothrombin Time with INR Stat Lab 11/29/24 12:18 Completed Troponin I Stat Lab 11/29/24 12:18 Completed ALBUTEROL RT 0.5ml [Proventil Rt 0.5ml] Med 11/29/24 13:16 Discontinued 5 mg INH X1 ONE CHLORpromAZINE INJ [Thorazine Inj] Med 11/29/24 13:46 Discontinued 25 mg IM X1 ONE Calcium Chloride 10% Abboject Med 11/29/24 13:16 Discontinued 10 ml IV X1 ONE Dextrose 50% Syr [D50w Syringe Abboject] Med 11/29/24 13:16 Discontinued 25 ml IV Q15MIN PRN DiphenhydrAMINE INJ [Benadryl Inj] Med 11/29/24 11:42 Discontinued 50 mg IVP X1 ONE Famotidine Inj [Pepcid Inj] Med 11/29/24 11:42 Discontinued 20 mg IVP X1 ONE Glucagon Inj Med 11/29/24 13:16 Discontinued 1 mg IM Q15MIN PRN HYDROmorphone INJ [Dilaudid Inj] Med 11/29/24 18:42 Discontinued 0.5 mg IVP X1 ONE Insulin Regular Med 11/29/24 13:16 Discontinued 5 unit IV X1 ONE Labetalol IV [Trandate IV] Med 11/29/24 11:47 Discontinued 20 mg IVP X1 ONE Metoclopramide Inj [Reglan Inj] Med 11/29/24 11:42 Discontinued 10 mg IVP X1 ONE Metoclopramide Inj [Reglan Inj] Med 11/29/24 18:35 Discontinued 10 mg IVP X1 ONE Sod Polystyrene Sulfon Susp [Kayexalate Susp] Med 11/29/24 13:16 Discontinued 30 gm [place] X1 ONE Sodium Chloride 0.9% 500 ml [Ns] 500 ml Med 11/29/24 11:43 Discontinued IV 999 mls/hr Sodium Chloride Rt Janine 0.9% [NS Rt Janine 0.9%] Med 11/29/24 13:16 Discontinued 3 ml INH PRN PRN hydrALAZINE INJ [Apresoline Inj] Med 11/29/24 14:14 Discontinued 20 mg IV X1 ONE Vital Signs Vital signs: Vital Signs Temperature 99.0 F 11/29/24 10:39 Pulse Rate 82 11/29/24 10:39 Respiratory Rate 18 11/29/24 10:39 Blood Pressure 217/95 H 11/29/24 10:39 Pulse Oximetry (%) 100 11/29/24 10:39 Oxygen Delivery Method Room Air 11/29/24 10:39 Nausea/Vomiting/Diarrhea MDM Narrative MDM Narrative:: 54-year-old male patient came in for evaluation regarding epigastric pain. Onset of symptoms for the last 2 days as epigastric pain, associated with vomiting, dry heaving, severity moderate. Patient was seen here yesterday for the same complaints and workup was done including CT scan of the abdomen. Patient did not go to his hemodialysis today due to not feeling well especially vomiting. Denies any fever diarrhea or other complaints medication was taken prior travel. Patient's PCP is Dr. Camacho. Patient's workup today is significant for potassium 6.1 leukocytosis of none 11.8 creatinine was noted to be 8.6, BUN of 42. Blood sugar 132. Chest x-ray showed no acute pathology noted. No congestion noted. Patient received hyperkalemia protocol including calcium chloride IV, Kayexalate, regular insulin 5 mg IV, albuterol breathing treatment. Repeat potassium was noted to be 5.4. Patient case discussed with Dr. 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 Patient can be dialyzed next week. Patient was also given multiple rounds of Reglan, promethazine, Pepcid, Dilaudid, Zofran, with significant improvement of symptoms. Patient is not dry heaving and not vomiting when nobody is around inside the room. But as soon as you go inside the room patient started dry heaving again. I was talking to the patient regarding plan of care including discharge home, were talking for 1 minute, and as soon as I told him that he is going home there is no reason to admit patient start to do dry heaving and tried to vomit with no vomitus. There is no indication to admit this patient. I reviewed patient CT scan yesterday and it came back unremarkable. Plan of care discussed with the patient and who persists on having hemodialysis today. I told him that I talked to Dr. Camacho and told me that there is no need to dialysis today since his potassium is back to 5.4 now. Patient data External records reviewed:: None Clinical information provided by:: patient Social determinants that could affect healthcare access:: none Patient has the following chronic illnesses:: ESRD How is presenting disease/condition affected by chronic disease/condition?: caused by Evaluation data The following diagnostics were reviewed and interpreted by me:: lab results and radiology exam(s) Lab and/or radiology exams considered but not ordered:: None Interpretation Summary: EKG as interpreted by me showed normal sinus rhythm, ventricular rate of 87 bpm, no ST segment elevation depression noted. The rest of the lab see MDM Medications / Prescriptions Medications / Prescriptions considered but not ordered:: None Medication administrations:: Medication Administration History Discontinued Medications Albuterol (Albuterol Rt 2.5 Mg/0.5 Ml Nebu) 5 mg INH X1 ONE Stop: 11/29/24 13:17 Last Admin: 11/29/24 14:38 Dose: 5 mg Documented By: RASHAAD Calcium Chloride (Calcium Chloride 10% Inj 10 Ml Syrg) 10 ml IV X1 ONE Stop: 11/29/24 13:17 Last Admin: 11/29/24 14:44 Dose: 10 ml Documented By: WALTER Chlorpromazine HCl (Chlorpromazine Inj 25 Mg/Ml Ampule 2ml) 25 mg IM X1 ONE Stop: 11/29/24 13:47 Last Admin: 11/29/24 13:52 Dose: 25 mg Documented By: WALTER Dextrose (Dextrose 50%-Water Inj 50 Ml Syringe) 25 ml IV Q15MIN PRN PRN Reason: BG 50-70 responsive npo pt Stop: 12/29/24 13:15 Last Admin: 11/29/24 14:38 Dose: 25 ml Documented By: WALTER Diphenhydramine HCl (Diphenhydramine Inj 50 Mg/Ml Vial) 50 mg IVP X1 ONE Stop: 11/29/24 11:43 Last Admin: 11/29/24 12:55 Dose: 50 mg Documented By: MONROE Famotidine (Famotidine Inj 10 Mg/Ml Vial 2 Ml) 20 mg IVP X1 ONE Stop: 11/29/24 11:43 Last Admin: 11/29/24 13:38 Dose: 20 mg Documented By: ISAAC Glucagon (Glucagon Inj 1 Mg Vial) 1 mg IM Q15MIN PRN PRN Reason: BG <70, and no IV access Hydralazine HCl (Hydralazine Inj 20 Mg/Ml Vial) 20 mg IV X1 ONE Stop: 11/29/24 14:15 Last Admin: 11/29/24 14:53 Dose: 20 mg Documented By: WALTER Hydromorphone HCl (Hydromorphone Inj 2 Mg/Ml Vial) 0.5 mg IVP X1 ONE Stop: 11/29/24 18:43 Last Admin: 11/29/24 18:49 Dose: 0.5 mg Documented By: LINDEN Sodium Chloride (Ns) 500 mls @ 999 mls/hr IV .Q31M ONE Stop: 11/29/24 12:13 Last Infusion: 11/29/24 16:42 Dose: Infused Documented By: Admin: 11/29/24 14:50 Dose: 999 mls/hr Documented By: WALTER Insulin Human Regular (Insulin Hum Regular 1 Unit/0.01 Ml (Per Unit)) 5 unit IV X1 ONE Stop: 11/29/24 13:17 Last Admin: 11/29/24 14:50 Dose: 5 unit Documented By: WALTER Co-signed By: WESLY Labetalol HCl (Labetalol Inj 5 Mg/Ml Vial 20 Ml) 20 mg IVP X1 ONE Stop: 11/29/24 11:48 Last Admin: 11/29/24 12:48 Dose: 20 mg Documented By: MONROE Metoclopramide HCl (Metoclopramide Inj 5 Mg/Ml Vial 2 Ml) 10 mg IVP X1 ONE; Protocol Stop: 11/29/24 11:43 Last Admin: 11/29/24 13:38 Dose: 10 mg Documented By: ISAAC Metoclopramide HCl (Metoclopramide Inj 5 Mg/Ml Vial 2 Ml) 10 mg IVP X1 ONE; Protocol Stop: 11/29/24 18:36 Last Admin: 11/29/24 18:49 Dose: 10 mg Documented By: LINDEN Sodium Chloride (Sodium Chloride Rt Janine 0.9% 3 Ml Nebu) 3 ml INH PRN PRN PRN Reason: SOLN Stop: 12/29/24 13:15 Last Admin: 11/29/24 14:39 Dose: 3 ml Documented By: RASHAAD Sodium Polystyrene Sulfonate (Sod Polystyrene Sulfon Susp 15 Gm/60 Ml Btl) 30 gm [place] X1 ONE Stop: 11/29/24 13:17 Last Admin: 11/29/24 14:37 Dose: 30 gm Documented By: WALTER Hyperkalemia protocol, calcium chloride, albuterol, Thorazine, regular insulin, IV fluids, Kayexalate, Dilaudid, Zofran and Reglan Consultations Consultation(s) initiated? (list below): Yes Consultation #1 (Physician, Specialty, Details): Spoke with Dr. Camacho, patient's digital printer operator who told me that there is no need to dialysis the patient today he can be dialyzed next week Diagnosis Nausea Differential Diagnosis: food poisoning and gastroenteritis Most likely diagnosis given after review of the tests above:: Gastritis, diabetic gastroparesis, ESRD Admission Indicated Admission indicated?: not indicated Admission Request Was there a request for admission?: No Disposition Plan Disposition Plan: Discharge Discharge Attestation Discharge Attestation: The patient and all family members were given an opportunity to ask questions and understood the discharge instructions. Discharge instructions specifically effects, indications for sooner follow up or return to the emergency department, and the expected course of current diagnosis. Patient condition: Stable Discharge Plan Plan Patient Disposition: HOME (Self Care) Disposition Comment: Stable Patient condition on transfer: Stable Prescriptions/Referrals Prescriptions/Med Rec: New pantoprazole [Protonix] 40 mg tablet,delayed release (DR/EC) 40 mg PO QDAY Qty: 30 0RF metoclopramide HCl [Reglan] 10 mg tablet 10 mg PO Q6H PRN (Reason: nausea and vomiting) Qty: 20 0RF dicyclomine 20 mg tablet 20 mg PO TID PRN (Reason: abdominal pain) Qty: 20 0RF No Action clonidine HCl 0.1 mg Tablet 0.2 mg PO TID 30 Days Qty: 180 1RF valsartan 80 mg Tablet 160 mg PO BID 30 Days Qty: 120 1RF hydralazine 100 mg tablet 100 mg PO TIDWM 30 Days Qty: 90 1RF metoclopramide HCl [Reglan] 5 mg tablet 5 mg PO TIDWMEAL Qty: 90 1RF nifedipine 60 mg Tablet Extended Release 24hr 60 mg PO BID metoclopramide HCl [Reglan] 10 mg tablet 10 mg PO Q6H PRN (Reason: nausea and vomiting) Qty: 20 0RF pantoprazole [Protonix] 40 mg tablet,delayed release (DR/EC) 40 mg PO QDAY Qty: 30 0RF alum-mag hydroxide-simeth [Maalox Advanced] 200-200-20 mg/5 mL suspension 15 ml PO QID PRN (Reason: indigestion) Qty: 3000 0RF Rx Instructions: administer between meals and at bedtime promethazine 50 mg tablet 50 mg PO TID PRN (Reason: sedation) Qty: 20 0RF metoclopramide HCl 5 mg tablet 5 mg PO TID MDD 15 mg PRN (Reason: nausea and vomiting) 7 Days Qty: 21 0RF Referrals: Tierra Crump MD [Primary Care Provider] - In 1 week Problem List Clinical Impression: Nausea & vomiting, ESRD on dialysis Patient/Caregiver Discharge Instructions Discharge Activity: activity as tolerated Education Materials: ED Vomiting (Adult) Additional Instructions: Thank you for the opportunity for serving you today. You are stable for discharged . You are advised to: Follow-up with your PCP in 1 to 2 days Return to ED for worsening of symptoms Print Language: Ugandan Stand Alone Forms: [employer] Award Info., Patient Portal Info Letter PA/LENA Supervising Physician PA/LENA Supervising Physician: MD Carlos A
--- NOTE | 2024-11-29 11:44 | EKG_ITS ---
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
[2024-11-29 12:36] LABS: Basophils % (Auto) 0 % (0-2.5); Eosinophils % (Auto) 0 % (0-10); Hematocrit 28.9 % (41.0-53.0); Hemoglobin 10.2 g/dL (13.5-16.0); Immature Granulocytes % (Auto) 0 % (0-0); Immature Granulocytes Auto 0.05 Thou/mm3 (0.00-0.00); Lymphocytes # (Auto) 1.2 Thou/mm3 (1.0-4.8); Lymphocytes % (Auto) 10 % (10-50); Mean Corpuscular HGB Conc 35.3 g/dl (31.0-37.0); Mean Corpuscular Hemoglobin 35.2 pg (25.0-35.0); Mean Corpuscular Volume 100 fL (80-100); Monocytes # (Auto) 1.1 Thou/mm3 (0.0-0.8); Monocytes % (Auto) 9 % (0-12); Neutrophils # (Auto) 9.4 Thou/mm3 (1.8-7.7); Neutrophils % (Auto) 80 % (37-80); Nucleated Red Blood Cell % 0 /100 WBC (0); Platelet Count 298 Thou/mm3 (140-440); RDW Standard Deviation 54.1 fL (35.1-43.9); White Blood Count 11.8 Thou/mm3 (3.8-10.6)
[2024-11-29 12:45] LABS: Partial Thromboplastin Time 25.6 Seconds (22.0-36.0); Prothrombin Time 11.1 Seconds (9.0-12.2)
[2024-11-29 12:46] LABS: B-Type Natriuretic Peptide 316 pg/mL (0-100)
[2024-11-29] MEDS: LABETALOL INJ 5 MG/ML VIAL 20 ML 20 MG IVP (12:48)
[2024-11-29 12:49] LABS: Alanine Aminotransferase 17 U/L (10-49); Albumin, Serum 4.8 gm/dL (3.5-5.0); Albumin/Globulin Ratio 1.5 (1.2-2.2); Alkaline Phosphatase 83 U/L (46-116); Anion Gap 15 (7-16); Aspartate Amino Transferase 23 U/L (0-34); BUN/Creatinine Ratio 5 Ratio (12-20); Bilirubin,Total 0.5 mg/dL (0.3-1.2); Blood Urea Nitrogen 42 mg/dL (9-23); Calcium 10.6 mg/dL (8.3-10.6); Calcium (Corrected) 10.6 mg/dL (8.5-10.1); Carbon Dioxide 30.6 mMol/L (20.0-31.0); Chloride 88 mMol/L (98-107); Creatinine (Component) 8.6 mg/dL (0.6-1.3); Estimated Creatinine Clearance 10.1 mL/min (>60); Globulin 3.2 gm/dL (2.3-3.5); Glucose 132 mg/dL (74-106); Osmolality,Calculated 280 (275-295); Sodium 134 mMol/L (136-145); Troponin I 0.026 ng/mL (0.0-0.045); eGFR 7 See Note
[2024-11-29 12:54] LABS: Potassium 6.1 mMol/L (3.4-5.1)
[2024-11-29 12:55] LABS: Beta Hydroxybutyrate 0.6 mmol/L (<0.6)
[2024-11-29] MEDS: DiphenhydrAMINE INJ 50 MG/ML VIAL IVP (12:55)
[2024-11-29] MEDS: FAMOTIDINE INJ 10 MG/ML VIAL 2 ML 20 MG IVP (13:38)
[2024-11-29] MEDS: METOCLOPRAMIDE INJ 5 MG/ML VIAL 2 ML 10 MG IVP ×2 (13:38→18:49)
[2024-11-29] MEDS: CHLORpromAZINE INJ 25 MG/ML AMPULE 2ML IM (13:52)
[2024-11-29] MEDS: SOD POLYSTYRENE SULFON SUSP 15 GM/60 ML BTL 30 GM PR (14:37)
[2024-11-29] MEDS: DEXTROSE 50%-WATER INJ 50 ML SYRINGE 25 ML IV (14:38)
[2024-11-29] MEDS: ALBUTEROL RT 2.5 MG/0.5 ML NEBU 5 MG INH (14:38)
[2024-11-29] MEDS: SODIUM CHLORIDE RT SOL 0.9% 3 ML NEBU INH (14:39)
[2024-11-29] MEDS: CALCIUM CHLORIDE 10% INJ 10 ML SYRG IV (14:44)
[2024-11-29] MEDS: INSULIN HUM REGULAR 1 UNIT/0.01 ML (PER UNIT) 5 UNIT IV (14:50)
[2024-11-29] MEDS: SODIUM CHLORIDE 0.9% 500 ML 500 ML 999 ML IV (14:50)
[2024-11-29] MEDS: hydrALAZINE INJ 20 MG/ML VIAL IV (14:53)
--- NOTE | 2024-11-29 15:09 | PC.NURSE ---
assuming care of patient.
[2024-11-29 17:27] LABS: Potassium 5.4 mMol/L (3.4-5.1)
[2024-11-29] MEDS: HYDROmorphone INJ 2 MG/ML VIAL 0.5 MG IVP (18:49)
== END 2024-11-29 19:27 | disposition home or self-care (01) ==
PROVIDERS: Nurse Practitioner Family; Emergency Provider Emergency Medicine; PCP Obstetrics & Gynecology
DX: N18.6 End stage renal disease (principal); E87.5 Hyperkalemia; R11.2 Nausea with vomiting, unspecified; Z99.2 Dependence on renal dialysis
CPT/HCPCS: 36415; 71045; 80053; 80307; 81001; 82010; 83880; 84132; 84484; 85025; 85610; 85730; 93005; 94640; 96361; 96372; 96374; 96375; 99284; J0360; J1200; J1815; J2765; J3230; J3490; J7040; A9270; J1920